=== PATIENT | male | born 1960 | race Caucasian/White ===

== ENCOUNTER 2024-05-04 08:43 | Outpatient (CLI) | payer MEDICARE, MEDICAID, SELFPAY ==
--- NOTE | 2024-05-04 14:11 | P.PCNPFT_ITS ---
PFT Procedure Performed PFT Procedure Performed Spirometry with Pre/Post Bronchodilator Plethysmography (Lung Vol) Diffusing Cap (DLCO) Flow Vol Loop PFT Interpretation This is a pulmonary function test with pre and post-bronchodilator spirometry, plethysmography and diffusing capacity. The test was performed and results interpreted in accordance with the 2019 and 2005 ATS/ERS Task Force guidelines respectively using the Global Lung Function Initiative-2012 reference equations. Patient demonstrated good effort and cooperation. Reproducibility criteria were met. The quality of the pre bronchodilator spirometry maneuver was Grade A and post bronchodilator spirometry maneuver was Grade A. Findings: Spirometry: There is decreased maximal expiratory airflow at all lung volumes with concave expiratory flow tracing. The contour the inspiratory flow tracing is normal. The pre bronchodilator FVC is 4.44 L, 135% predicted. The pre bronchodilator FEV1 is 1.93 L, 75% predicted. The pre bronchodilator FEV1: FVC ratio is 43%. The post bronchodilator FVC is 4.85 L, representing a 9% increase. The post bronchodilator FEV1 is 2.09 L, representing an 8% increase. The post bronchodilator FEV1: FVC ratio is 43%. Plethysmography: The total lung capacity is 7.68 L, 143% predicted. The functi onal residual capacity is 4.89 L, 181% predicted. The residual volume is 3.24 L, 171% predicted. The residual volume: Total lung capacity ratio is 42%. Diffusing capacity: The diffusing capacity unadjusted for hemoglobin and carboxyhemoglobin is 11.3, 47% predicted. The diffusing capacity adjusted for alveolar volume is 1.82, 40% predicted. Impression: There is a mild obstructive abnormality with a normal FEV1. There is no significant improvement after inhaling a single dose of albuterol. The total lung capacity is increased with a normal residual volume to total lung volume ratio is consistent with large lungs.. The diffusing capacity unadjusted for hemoglobin and carboxyhemoglobin is moderately decreased and remains moderately decreased when adjusted for alveolar volume. There are no prior studies for comparison
== END 2024-05-04 08:44 | disposition home or self-care (01) ==
LOC: ANHPFT 08:45
PROVIDERS: PCP Emergency Medicine; Visit Provider Emergency Medicine
DX: R06.00 Dyspnea, unspecified (principal); R94.2 Abnormal results of pulmonary function studies
CPT/HCPCS: 94060; 94726; 94729

== ENCOUNTER 2024-11-13 09:34 | Outpatient (CLI) | payer MEDICARE, MEDICAID, SELFPAY ==
--- NOTE | ~2024-11-13 | MR_ITS ---
MRI of the lumbar spine Clinical History: Radiculopathy Technique: Axial T2-weighted images, and sagittal T1-weighted, T2-weighted, and T2 fat-sat images wer e acquired. Findings: There is no fracture or subluxation of the lumbar spine. Vertebral bodies maintain normal h eight and alignment. No suspicious bone marrow signal abnormality seen. There are reactive marrow sig nal changes about the L4-L5 disc space due to underlying degenerative disc disease. At L1-L2, there is mild degenerative disc narrowing with minimal facet hypertrophy. No spinal canal s tenosis or neural foraminal narrowing. At L2-L3, there is no disc bulge or herniation. There is mild facet hypertrophy. No central canal charito nosis or neural foraminal narrowing. L3-L4, there is mild degenerative disc narrowing. There is mild diffuse disc bulge with mild facet ar thropathy. No jose central canal stenosis. There is moderate to advanced left neural foraminal narro wing, and mild to moderate right neural foraminal narrowing. At L4-L5, there is advanced degenerative disc narrowing. There is diffuse disc bulge with mild facet arthropathy. No jose central canal stenosis. There is severe right neural foraminal narrowing, and m oderate left neural foraminal narrowing. At L5-S1, there is moderate to advanced degenerative disc narrowing. There is diffuse disc bulge with probable superimposed left paracentral protrusion. There is moderate facet arthropathy. There is mil d central canal stenosis. There is severe bilateral neural foraminal compromise. Paravertebral soft tissues are unremarkable. Impression: Severe degenerative spondylosis at L4-L5 and L5-S1, as detailed above. Moderate degenerative spondylosis at L3-L4. Reviewed, dictated and finalized at location M. Impression: Severe degenerative spondylosis at L4-L5 and L5-S1, as detailed above. Moderate degenerative spondylosis at L3-L4.
--- OUTSIDE RECORDS SUMMARY | 2024-11-13 09:38 | XMS_ITS | Data Portability ---
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 I have discussed options with him. He has use Naprosyn in the past and tolerated this back in August. That would be 1 option. Another option would be to try cortisone shot. He would like to try that today. I have discussed risk of side effects including risk of infection with him. He would like to have the 2nd metacarpophalangeal joint injected only as the 3rd has not been bothering him for while. After ChloraPrep prep, 5 mg of Kenalog and 0.5 cc of 0.5% ropivacaine were injected into the right 2nd metacarpophalangeal joint without difficulty he tolerated this well. I discussed with him that he can have a cortisone shot in this joint is office every 3 months if they are necessary and helpful. Another treatment option would be arthroplasty of the 2nd metacarpophalangeal joint and I would refer him to a hand surgeon with special is a shunt in that area if he would like to pursue that option. I have given him Dr. Chi is a name and number he like to that and I advised him that he would need to quit smoking before that would be a consideration. 30 minutes were spent in total care this patient more than half the time spent in [id number] care. 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 We talked about treatment options today in detail he wanted proceed with a cortisone injection. I also recommended oral anti-inflammatory medication he has not currently taking anything he would like to try Celebrex 200 mg daily. We will get him set up with a prescription. I have also recommended referral to a hand surgeon for possible arthroplasty he is going to think about it for now he just wants to try the shot of cortisone in the oral medication. Therefore under sterile conditions I injected the patient's right hand 2nd MCP joint in the office with 2 cc of 0.5% bupivacaine plain and 10 mg of Kenalog. Patient tolerated the procedure well. I will see him back in 6 weeks or so to see what impact treatment has had. He voiced understanding agrees above plan will call for any further problems difficulties or questions. [email or web address] Not available 12/17/2023 16:17:12 03/03/2024 03/03/2024 This note is dic tated and transcribed by [employer]. Programming Manager variances may occur. Despite proofreading, typographical errors may occur. Occasional wrong-word or 'bhsqu-h-wkom' substitutions may have occurred due to the inherent limitations of voice recording. Read the chart carefully and recognize, using context, where substitutions have occurred. Not available 03/10/2024 10:14:09 04/04/2024 04/04/2024 This note is dic tated and transcribed by [employer]. Programming Manager variances may occur. Despite proofreading, typographical errors may occur. Occasional wrong-word or 'bwagg-r-jsnb' substitutions may have occurred due to the inherent limitations of voice recording. Read the chart carefully and recognize, using context, where substitutions have occurred. Not available 04/04/2024 15:25:44 Plan of Treatment Reminders Order Date Submit Date Provider Last Modified By Organization Details Last Modified Time Details Appointments None recorded. Lab None recorded. Referral None recorded. Procedures injection/a spiration joint/bursa (PROC) 2023 024 [email or web address] In-Office Order, Internal Use Only DO Not Attach Compendium DO Not Attach Compendium, Do Not Delete/merge, [id number] 11:04:52 injection/a spiration joint/bursa (PROC) - in office procedure, administere d by provider 2022 023 [email or web address] In-Office Order, Internal Use Only DO Not Attach Compendium DO Not Attach Compendium, Do Not Delete/merge, [id number] 10:12:30 Surgeries None recorded. Imaging XR, hand 2022 023 [email or web address] [facility], [address], [place], [address], 3 15:15:49 Medication Orders bupivacaine HCl 0.5 % (5 mg/mL) injection solution [address] [facility], [address], [place], [id number], 4 15:40:37 Kenalog 10 mg/mL suspension for injection [address] [facility], [address] [place] [address], [id number], 4 15:40:44 celecoxib 200 mg capsule [address] [facility], [address] [facility], [place], [place], [id number], 4 15:40:41 Kenalog 10 mg/mL suspension for injection 2022 023 [email or web address] #67561, [address], [place], [place], [id number], 4 15:40:44 ropivacaine (PF) 5 mg/mL (0.5 %) injection solution 2022 023 [email or web address] [facility] #65595, [address], [place], [place], [id number], 4 15:40:50 Patient TargetsNo targets recorded. Patient InstructionsNo instructions recorded. Reason for Referral None Reported. Results Created Date Observation Date Name Description Value Unit Range Abnormal Flag Note LastModifiedBy Organization Detail LastModifiedTime 07/24/20 23 XR, hand No observ ation record ed. [email or web address] [facility] [address], [place], [address], 08/04/2023 17:24:26 Result Notes None recorded. Problems Name Problem SNOMED Code Status Onset Date Resolution Date Notes Provider Name and Address Organization Details Recorded Time Tobacco user 905675702 Active 2019 Not Available [facility] 3 19:29:37 Alcohol abuse 85326069 Active 2019 Not Available [facility] 3 19:29:37 Insomnia 606487380 Active 2016 Not Available [facility] 3 19:29:38 Chronic bullous emphysema 827623728 Active 2016 Not Available [facility] 3 19:29:38 Neck swelling 471880869 Active 2019 Not Available [facility] 3 19:29:38 Chronic dermatitis 02248139 Active 2016 Not Available [facility] 3 19:29:38 Depressive disorder 03838381 Active 2016 Not Available [facility] 3 19:29:38 Lesion of ulnar nerve 717406016 Active Not Available [facility] 3 19:29:38 Peripheral vascular disease 189131644 Active 2019 Not Available [facility] 3 19:29:38 Anxiety 75237535 Active 2019 Not Available [facility] 3 19:29:38 Alcoholism 4650179 Active 2016 Not Available [facility] 3 19:29:38 Pain in right hand 6171068385643 09 Active 2022 Rae Sudarshan ALFONSO null, [facility] 3 09:24:58 Degenerati ve joint disease of hand 54554597 Active 2023 BRYON España [address], [address], [place], [address] , [facility] 4 16:17:25 Degenerati ve joint disease of hand 98808758 Active 2023 BRYON España [address], [address], [place], [address] , [facility] 4 16:20:19 Asthma 507461053 Active 2023 Yashira Briggs null, [place] [facility] 4 15:41:49 Bronchitis 74772147 Active 2023 Yashira Briggs null, [facility] 4 15:41:57 Skin problem 568711094 Active 2023 Yashira Briggs null, [facility] 4 15:42:15 Sleep disorder 48934805 Active 2023 Yashira Briggs null, [place] [facility] 4 15:42:24 Vascular disorder 18251789 Active 2023 Yashira ortiz, [facility] 4 15:42:35 Cigarette smoker 78232133 Active 2023 Oscar Daniels DPM [address], [address], [place], [address] , [facility] 4 10:17:17 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 Procedures Surgical History Date Name Laterality Status Provider Name and Address Organization Details Recorded Time Nail Debridement completed Oscar Daniels DPM [address], [place], [address], [email or web address] [facility] 04/04/2024 15:28:29 Imaging Results Imaging Date Name Status LastModified by Organiz ation Details LastModified Time 07/24/2023 XR, hand completed [email or web address] [facility] [address], [place], [address], 08/04/2023 17:24:26 Procedure Notes None recorded. Medical Equipment None Reported. Allergies No known drug allergies Medications Name Sig Start Date Stop Date Status Note LastModified by Organization Details LastModified Time losartan 50 mg tablet TAKE 1 TABLET BY MOUTH EVERY DAY active Not Available Not Available No t Available celecoxib 200 mg capsule TAKE 1 CAPSULE BY MOUTH EVERY DAY active Not Available Not Available No t Available cilostazol 100 mg tablet TK 1 T PO BID 11/25 completed Not Available Not Available Not Available bupropion HCl SR 150 mg tablet,12 hr sustained-r elease 11/25 completed Not Available Not Available Not Available nystatin 100,000 unit/mL oral suspension SWISH AND SPIT 6 ML BY MOUTH FOUR TIMES DAILY 03/03 completed Not Available Not Available Not Available prednisone 10 mg tablet 07/24 completed Not Available Not Available Not Available nicotine 14 mg/24 hr daily transdermal patch APPLY 1 PATCH TOPICALLY TO THE SKIN EVERY DAY 07/24 completed Not Available Not Available Not Available triamcinolo ne acetonide 0.5 % topical cream LUCY THIN LAYER EXT AA BID FOR 7 DAYS 11/25 completed Not Available Not Available Not Available cetirizine 10 mg tablet TAKE 1 TABLET BY MOUTH EVERY DAY 07/24 completed Not Available Not Available Not Available azithromyci n 250 mg tablet TK 2 TS PO ON DAY 1, THEN TK 1 T PO D FOR 4 DAYS 11/25 completed Not Available Not Available Not Available naltrexone 50 mg tablet 11/25 completed Not Available Not Available Not Available bupivacaine HCl 0.5 % (5 mg/mL) injection solution in office 03/03 completed Not Available Not Available Not Available prednisone 20 mg tablet TK 3 TS PO ONCE DAILY. 11/25 completed Not Available Not Available Not Available acetaminoph en 300 mg-codeine 30 mg tablet TAKE 1 TABLET BY MOUTH FOUR TIMES DAILY NEEDED 04/04 completed Not Available Not Available Not Available clopidogrel 75 mg tablet TK 1 T PO QD 11/25 completed Not Available Not Available Not Available omeprazole 40 mg capsule,del ayed release TAKE 1 CAPSULE BY MOUTH EVERY DAY active Not Available Not Available No t Available triamcinolo ne acetonide 0.025 % topical cream 11/25 completed Not Available Not Available Not Available Kenalog 10 mg/mL suspension for injection in office 03/03 completed [facility]: 0003- [phone]- 20 Not Available Not Available Not Available benzonatate 100 mg capsule 11/25 completed Not Available Not Available Not Available simvastatin 20 mg tablet TK 1 T PO QD 11/25 completed Not Available Not Available Not Available buspirone 10 mg tablet TK 1 T PO BID 11/25 completed Not Available Not Available Not Available nicotine 21 mg/24 hr daily transdermal patch APPLY 1 PATCH TOPICALLY TO THE SKIN EVERY DAY active Not Available Not Available No t Available albuterol sulfate HFA 90 mcg/actuati on aerosol inhaler INHALE 2 PUFFS BY MOUTH EVERY 4 TO 6 HOURS NEEDED 07/24 completed Not Available Not Available Not Available doxycycline hyclate 100 mg tablet TK 1 T PO D 11/25 completed Not Available Not Available Not Available naproxen 500 mg tablet TAKE 1 TABLET BY MOUTH TWICE DAILY WITH FOOD 07/24 completed Not Available Not Available Not Available amoxicillin 875 mg-potassiu m clavulanate 125 mg tablet TAKE 1 TABLET BY MOUTH TWICE DAILY 03/03 completed Not Available Not Available Not Available nicotine 7 mg/24 hr daily transdermal patch APPLY 1 PATCH TOPICALLY TO THE SKIN EVERY DAY DIRECTED 07/24 completed Not Available Not Available Not Available oxycodone 5 mg tablet TAKE 1 TABLET BY MOUTH EVERY 6 HOURS NEEDED FOR PAIN 07/24 completed Not Available Not Available Not Available Asprin Ec Low Dose 81 mg tablet,phill yed release Take 1 tablet every day by oral route. active Not Available Not Available No t Available Suprep Bowel Prep Kit 17.5 gram-3.13 gram-1.6 gram oral solution DIRECTED 11/25 completed Not Available Not Available Not Available ropivacaine (PF) 5 mg/mL (0.5 %) injection solution IN OFFICE 03/03 completed Not Available Not Available Not Available Stiolto Respimat 2.5 mcg-2.5 mcg/actuati on solution for inhalation INHALE 2 PUFFS BY MOUTH EVERY DAY active Not Available Not Available No t Available bupropion HCl 150 mg tablet,12 hr sustained-r elease(smok ing deterrent) TK 1 T PO BID 11/25 completed Not Available Not Available Not Available Afluria Qd 2019- (36 mos up)(PF)60 mcg (15 mcg x4)/0.5 mL IM syringe ADM 0.5ML IM UTD 11/25 completed Not Available Not Available Not Available Vitals Date Recorded Body height Body mass index (BMI) Body weight Provider Name and Address Organization Details Last Updated DateTime 07/24/2023 162.56 cm 18.9 kg/m2 69548.16 g ALFONSO Marin [employer] 07/24/2023 09:27:33 Date Recorded Body height Body mass index (BMI) Body weight Provider Name and Address Organization Details Last Updated DateTime 12/17/2023 162.56 cm 23.2 kg/m2 14037.97 g Melinda Chatman [employer] 12/17/2023 15:28:14 Date Recorded Body height Body mass index (BMI) Body weight Provider Name and Address Organization Details Last Updated DateTime 03/03/2024 157.48 cm 20.5 kg/m2 61283.35 g Yashira Briggs [employer] [facility] 03/03/2024 15:41:25 Date Recorded Body height Body mass index (BMI) Body weight Respiratory rate Heart rate Body temperature Oxygen saturation Oxygen saturation in Arterial blood by Pulse oximetry Systolic blood pressure Diastolic blood pressure Provider Name and Address Organization Details Last Updated DateTime 4 157.48 cm 20.5 kg/m2 22895.3 5 g 16 /min 66 /min 97.6 [degF] 96 % 96 % 130 mm[Hg] 90 mm[Hg] Yasmeen Lambert [place] [facility] [facility] 4 14:49:50 Social History Question Answer Notes LastModified by Organizat ion Details LastModified Time Tobacco Smoking Status Current Every Day Smoker ALFONSO [place], [place] [facility] 07/24/2023 09:23:59 What Is Your Level Of Alcohol Consumption? Moderate Information not available 03/03/2024 How Much Tobacco Do You Smoke? 1 PPD [email or web address] Information not available 07/24/2023 Do You Or Have You Ever Used Any Other Forms Of Tobacco Or Nicotine? Yes Information not available 07/24/2023 Sex: Unknown Functional Status None recorded. Mental Status None recorded. Family History Relationship Description Onset Age of this Age Resolved Age Notes LastModified by Organization Details LastModified Time Mother Arthritis Not available 03/03/2024 15:42:58 Mother Hypertensive disorder [email or web address] Not available 2023 15:43:11 Mother Heart disease [email or web address] Not available 2023 15:43:26 Father Hypertensive disorder [email or web address] Not available 2023 15:43:11 Father Heart disease [email or web address] Not available 2023 15:43:25 Medical History Condition Response ARTHRITIS Y PVD Y CAROTID BLOCKAGE Y USE OF BLOOD THINNERS Y VASCULAR DISEASE Y COPD Y Past Encounters Encounter ID Performer Location Encounter Start Date Encounter Closed Date Diagnosis/Indication Diagnosis SNOMED-CT Code Diagnosis ICD10 Code Diagnosis Note [id number] Carlos Kiran MD [facility] [place] [address] [place] [address] 07/24/2023 09:09:06 08/05/2023 15:15:49 Pain in right hand 6558812650 91043 M79.022 [id number] BRYON España [facility] [address] [place] [address] 12/17/2023 15:21:23 12/17/2023 15:59:23 Pain in right hand 3782067656 89299 M79.641 Degenerati ve joint disease of hand 64439177 M19.207 [id number] Oscar Daniels DPM [facility] [address] [place] [address] 03/03/2024 15:30:46 03/10/2024 10:20:06 Cigarette smoker 70459922 F17.210 recommend discontinu e smokingedu cated on signs symptoms of smoking Alcoholic polyneuropathy 1764501 G62.1 secondary to abovecheck feet dailyconti nue supportive shoe gearfollow -up 1 month Alcohol abuse 82655972 F 10.10 recommend no drinkinged ucated on signs and symptoms of alcohol abuse [id number] Oscar Daniels DPM [facility] [address] [place] [address] 04/04/2024 14:42:37 04/04/2024 16:41:35 Cigarette smoker 23327508 F17.210 recommend discontinu e smokingedu cated on signs symptoms of smoking Peripheral vascular disease 583249450 I73.9 Follow-up with vascular next week Dystrophia unguium 61346 009 L60.3 nails debrided without incident Pain in toe 720249821 M7 9.676 secondary to above Health Concerns Section Related Observation LastModified by Organization Detai ls LastModified Time None Recorded Concern Status LastModified by Organization Details LastModified Time None Recorded Advance Directives Directive None Recorded Payers Encounter Date Sequence Insurance Name Policy Number Policy Young Covered Member ID Young Member ID Guarantor Name 07/24/2023 1 [facility] (MEDICARE REPLACEMENT/A DVANTAGE - PPO) [id number] Robin Self [id number] Robin Self 12/17/2023 1 [facility] (MEDICARE REPLACEMENT/A DVANTAGE - PPO) [id number] Robin Self [id number] Robin Self 03/03/2024 1 [facility] (MEDICARE REPLACEMENT/A DVANTAGE - PPO) [id number] Robin Self [id number] Robin Self 04/04/2024 1 [facility] (MEDICARE REPLACEMENT/A DVANTAGE - PPO) [id number] Robin Self [id number] Robin Self Notes Date Note Type Note Provider Name and Address Organization Details Recorded Time 3 text/html Patient is a 63-year-old gentleman referred by Dr. Boland for evaluation of his right hand pain. He complains of intermittent severe pain and swelling and burning pain in the right 2nd metacarpophalangeal joint. Occasionally the 3rd metacarpophalangeal joint becomes painful that quite as severe and much less frequent. At times this will awaken him at night and it is hard to use his right hand. His past history is significant for a recent left sided carotid endarterectomy knee scheduled for the right side soon. He has a history of poor circulation in his legs also. He is currently using the nicotine patch to help him quit smoking. He has cut back to 5 cigarettes per day as of yesterday. Carlos Kiran MD [address] [place] [address], [place], [address], [place] [facility] 08/04/2023 17:27:58 4 text/html Patient returns complaining of right hand pain at the 2nd MCP joint. Previous x-rays show fairly advanced osteoarthritis of the 2nd MCP joint with essentially [id number] changes. He has enlargement of the joint crepitation through the arc of motion and pain that persists. He states if he overdoes it is joint will get enlarge it is quite tender and stiff. Today states the pain is about an 8 on a scale 1-10 it has been bothering him a lot lately. He last had a shot of cortisone here 5 and half months ago. He states this helped tremendously but the past few weeks it has been bothering him more and more. Despite conservative measures on his own at home his symptoms continue. He comes in today requesting a cortisone injection into the right hand 2nd MCP joint. He has not currently taking any anti-inflammatory medication we talked about this in detail today I have recommended that maybe he try something for a short course to see if this helps. We could refer him to Dr. Chi talk about possible surgical options for this as well. BRYON España [address], [address], [place], [address], [email or web address] [facility] 12/17/2023 16:20:37 4 text/html . Patient is a 63-year-old male who presents for foot care checkup. Patient denies any open wounds or infection. Patient denies any other complaints. Oscar Daniels DPM [address], [place], [address], [employer] 03/10/2024 10:20:05 4 text/html . Patient is a 63-year-old male who returns for routine foot care. Patient has a history of toe pain due to thickened elongated toenails which he states he is unable to cut. Patient has a history of peripheral vascular disease he has an upcoming appointment on next week with vascular. Patient states that he has had stenting but was unsuccessful of the lower legs he states that he can only walk short distances and develops pain he states he smokes approximately 8 cigarettes a day. Patient states he is trying to quit. Patient denies any other complaints. Oscar Daniels DPM [address], [place], [address], [email or web address] [facility] 04/04/2024 15:28:48
--- OUTSIDE RECORDS SUMMARY | 2024-11-13 09:39 | XMS_ITS | Referral Summary ---
Author Organization [facility] Physician Office Building [address] [place] [phone] Care Team Providers Care Primer Expeditor And Drier Name Role Phone Nara Craig MD Primary Care Provider [phone] Encounters Date Type Department Care Team Description 10/24/2024 Telephone [facility] Gastroenterology at [address] [place] [address] Thania Hagen MA from Last 3 Months Allergies Active Allergy Reactions Criticality Noted Date Comments Venom-Honey Bee Swelling High 05/06/2023 Medications aspirin 81 mg enteric coated tablet Take 1 tablet (81 mg total) by mouth daily Active albuterol HFA (PROVENTIL HFA,VENTOLIN HFA,PROAIR HFA) 90 mcg/actuation inhaler Take 2 puffs by mouth every 4 (four) hours as needed 2 Active nicotine (NICODERM CQ) 14 mg APPLY 1 PATCH EXTERNALLY TO THE SKIN DAILY. DO NOT SMOKE WITH PATCHES ON 3 Active celecoxib (CeleBREX) 200 mg capsule Take by mouth daily 4 Active tiotropium-olod ateroL (STIOLTO) 2.5-2.5 mcg/actuation inhaler 4 Active triamcinolone (KENALOG) 0.5 % cream LUCY THIN LAYER EXT AA BID FOR 7 DAYS 8 Active losartan (COZAAR) 50 mg tablet Take 1 tablet (50 mg total) by mouth daily 4 Active Active Problems Problem Noted Date Diagnosed Date Lesion of ulnar nerve 07/19/2024 Neck pain 07/19/2024 Shoulder pain 07/19/2024 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 Pain in toe 04/04/2024 Personal history of colonic polyps 04/01/2024 Encounter for screening colonoscopy 04/01/2024 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 Cigarette smoker 03/10/2024 Asthma 03/03/2024 Bronchitis 03/03/2024 Vascular disorder 03/03/2024 Skin problem 03/03/2024 Sleep disorder 03/03/2024 Degenerative joint disease of hand 12/17/2023 Pain in right hand 07/23/2023 Left-sided extracranial carotid artery stenosis 09/26/2022 Neck swelling 06/24/2020 Multiple nodules of lung 09/06/2017 Anxiety 07/27/2017 Numbness of finger 07/27/2017 Alcoholism 06/24/2017 Chronic dermatitis 06/24/2017 High prostate specific antigen (PSA) 06/15/2017 Nicotine dependence 06/14/2017 Claudication 01/07/2017 Peripheral vascular disease 01/07/2017 Tobacco abuse 01/07/2017 Alcohol abuse 10/22/2016 Insomnia 10/22/2016 Leg pain 09/10/2016 Dyslipidemia 09/10/2016 Shortness of breath 09/10/2016 Ventricular premature depolarization 09/10/2016 Chronic bullous emphysema 07/06/2016 Pain in lower limb 06/15/2016 Depressive disorder 06/15/2016 Dyspnea on exertion 06/15/2016 Social History Tobacco Use Types Packs/Day Years Used Date Smoking Tobacco: Every Day Cigarettes Tobacco Cessation:Ready to Q uit: Not Asked; Counseling Given: Not Answered Sex and Gender Information Value Date Recorded Sex Assigned at Not on file Legal Sex 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 Gender Identity Not on file Sexual Orientation Not on file Last Filed Vital Signs Vital Sign Reading Time Taken Comments Blood Pressure - - Pulse - - Temperature - - Respiratory Rate - - Oxygen Saturation - - Inhaled Oxygen Concentration - - Weight 52.2 kg (115 lb) 07/19/2024 7:50 AM FISHING ACCESSORIES MAKER Height 157.5 cm (5' 2 ) 07/19/2024 7:50 AM FISHING ACCESSORIES MAKER Body Mass Index 21.03 07/19/2024 7:50 AM FISHING ACCESSORIES MAKER Plan of Treatment Upcoming Encounters Date Type Department Care Team (Late st Contact Info) Description 02/21/2025 9:00 AM CDT Hospital Encounter [address] [place] [address] Marcella Calabrese MD [address] [facility] [address] [place] [address] 02/21/2025 9:00 AM CDT - 02/21/2025 9:30 AM CDT Surgery [facility] [address] [place] [address] Marcella Calabrese MD [address] [facility] [address] [place] [address] COLONOSCOPY Scheduled Procedures Name Priority Associated Diagnoses Date/Ti me COLONOSCOPY Personal history of colonic polyps Encounter for screening colonoscopy 02/21/2025 9:00 AM CDT Procedures Procedure Name Priority Date/Time Associated Diagnosis Comments COLONOSCOPY IMAGES 04/23/2016 from Last 3 Months or Most Recently Relevant to Health Maintenance Results * COLONOSCOPY IMAGES (04/23/2016) Anatomical Region Laterality Modality Other Narrative 04/23/2016 Ordered by an unspecified provider. us Historical Provider GI PROCEDURE ORDERABLES F inal Result from Last 3 Months or Most Recently Relevant to Health Maintenance Insurance [place] [employer] [facility] MEDICARE [facility] Address: [address] [address] [place] [address] [employer] [facility] MEDICARE [facility] Address: [address] [address] [place] [address] Care Teams Primer Expeditor And Drier Relationship Specialty Start Date End Date Nara Craig MD [address] [place] [id number] PCP - General Emergency Medicine 03/31/24
--- OUTSIDE RECORDS SUMMARY | 2024-11-13 09:39 | XMS_ITS | CONTINUITY OF CARE DOCUMENT ---
Author Name reddnubia onicourt Address Unknown Organization [facility] Address [address] [place] [address] Phone [phone] Care Team Providers Care Electrician Substation Name Role Phone Christiano Patton MD Unavailable [phone] SYLVIA ALVAREZ, NATALIE Unavailable [phone] NATALIE WARD MD Unavailable [phone] PROBLEMS Condition Status Date Provider Notes Leg pain active Christiano Patton MD Family History of Sudden Car diac /CAD/CHF/CVA active ? Praful Degroot MD PVC's active Christiano Patton MD Dyslipidemia active Christiano Patton MD Shortness of breath active Christiano Patton MD Tobacco abuse active Christiano Patton MD PVD - 11/24 AIF - SEVERE active Christiano Patton MD ENCOUNTERS Date Type Provider Location Encounter Diag nosis - In-person encounter Office Visit Praful Degroot MD [place] [facility] - In-person encounter Office Visit Christiano Patton MD [place] [facility] PVD - 11/24 AIF - [place] - In-person encounter Office Visit Praful Degroot MD [place] [facility] Family History of Sudden Cardiac /CAD/CHF/CVAPVD - 11/24 AIF - [place] - In-person encounter Office Visit Christiano Patton MD [place] [facility] Leg painFamily History of Sudden Cardiac /CAD/CHF/CVAPVC' sDyslipidemiaShortnes s of breathTobacco abuse VITAL SIGNS Date Observation Value Provider Body Mass Index (Ratio) 20.72 kg/m2 Shalom Degroot MD blood pressure, cuff size regular Ke rri Maulik blood pressure, diastolic 86 mm[Hg] Ke rri Maulik blood pressure, systolic 124 mm[Hg] Tanna vallejo Maulik oxygen saturation, oximetry 98 % Penny Maulik respiratory rate E&M 18 /min Penny Cano kendal pulse rate 84 /min Penny Melvin [facility] weight E&M 117 [lb_av] Penny Benedictolindseyalmatanmay [facility] height E&M 63 [in_i] Penny Melvin [facility] Body Mass Index (Ratio) 21.72 kg/m2 Yobany Saldaña blood pressure, resting No Yany Whittaker Montesinos blood pressure, diastolic 82 mm[Hg] Tyshawn Jungenson blood pressure, systolic 118 mm[Hg] Marleny Montesinos oxygen saturation, oximetry 96 % Reba Jungenson respiratory rate E&M 20 /min Renzo Montesinos pulse rate 84 /min Reba Dimitris lesa weight E&M 122.6 [lb_av] Reba Erich rosa isela height E&M 63 [in_i] Reba Shanks lesa Body Mass Index (Ratio) 21.79 kg/m2 Yobany Saldaña blood pressure, cuff size regular Melia Bean blood pressure, diastolic 70 mm[Hg] Melia Bean blood pressure, systolic 110 mm[Hg] Emery Bean oxygen saturation, oximetry 98 % Belen Bean pulse rate 78 /min Belen Bean weight E&M 123 [lb_av] Belen Bean height E&M 63 [in_i] Belen Bean Body Mass Index (Ratio) 21.61 kg/m2 Yobany Saldaña blood pressure, cuff size regular Luico Quirogamontana blood pressure, diastolic 92 mm[Hg] Lucio myers Maulik blood pressure, systolic 146 mm[Hg] Tanna vallejo Maulik oxygen saturation, oximetry 98 % Penny Maulik respiratory rate E&M 16 /min Penny Jerome edmonds pulse rate 82 /min Penny Feltonskip austin weight E&M 122 [lb_av] Penny Melvin [place] height E&M 63 [in_i] Penny Smithbibiana olmstead ALLERGIES No Known Drug Allergies RESULTS Date Observation Value Provider Reference Range Interpretation Location 8 LDL cholesterol, serum 73 mg/dL Christiano Patton MD 5 hemoglobin A1C, blood, as % of total hemoglobin 5.7 % [facility] 4.0 - 5.6 High 8 very low density lipoproteins 35.8 mg/dL [facility] 5.0 - 40.0 8 LDL/HDL (low-density lipoprotein/high- density lipoprotein) ratio 1.2 RATIO [facility] - 8 lipoprotein, beta, serum, point, quantitative, calculated 73.2 (?) [facility] 0.0 - 100.0 8 HDL cholesterol, serum 60.0 mg/dL [facility] 35.0 - 55.0 High 8 cholesterol, serum 169.0 mg/dL [facility] 0.0 - 200.0 8 triglyceride, serum, fasting 179.0 mg/dL [facility] 0.0 - 150.0 High 8 urea nitrogen/creatini ne ratio, serum 14.0 [facility] - 8 Estimated Glomerular Filtration Rate (calc) 81.6 (?) [facility] 59.0 - 8 chloride, serum 99.9 mmol/L [facility] 98.0 - 107.0 8 potassium, serum 4.0 mmol/L [facility] 5[facility]1 8 sodium, serum 139.0 mmol/L [facility] 136.0 - 145.0 8 creatinine, serum 1.0 mg/dL [facility] 0.7 - 1.2 8 carbon dioxide, venous blood 23.0 mmol/L [facility] 22.0 - 29.0 8 calcium, serum 9.1 mg/dL [facility] 8.6 - 10.2 8 urea nitrogen, blood 14.0 mg/dL [facility] 6.0 - 20.0 8 blood glucose, random 85.0 mg/dL [facility] 74.0 - 99.0 8 red blood cell distribution width, size density 45.9 fL [facility] - 8 immature granulocytes, percentage of total cells, blood 0.2 % [facility] - 8 nucleated red blood cells as percent of blood leukocytes 0.0 % [facility] - 8 red blood cell (erythrocyte) count, per high power field 0.0 10*3/UL [facility] - 8 eosinophils as percent of blood leukocytes 4.0 % [facility] - 8 neutrophils as percent of blood leukocytes 49.4 % [facility] - 8 Absolute Neutrophils 3.1 CELLS/UL [facility] 1.5 - 7.8 8 basophils as percent of blood leukocytes 0.6 % [facility] Absolute Basophils 0.0 CELLS/UL [facility] 0.0 - 0.2 8 monocytes as percent of blood leukocytes 10.5 % [facility] - 8 Absolute Monocytes 0.7 CELLS/UL [facility] 0.2 - 1.0 8 lymphocytes as percent of blood leukocytes 35.3 % [facility] - 8 Absolute Lymphocytes 2.2 CELLS/UL [facility] 0.9 - 3.9 8 mean platelet volume 10.6 (?) [facility] - 8 platelet count 161.0 THOUSAND/ UL [facility] 100.0 - 400.0 8 mean corpuscular hemoglobin concentration, RBC 33.4 G/DL [facility] 31.0 - 38.0 8 mean corpuscular hemoglobin, RBC 32.2 pg [facility] 25.0 - 35.0 8 mean corpuscular volume, RBC 96.3 fL [facility] 75.0 - 100.0 8 hematocrit, blood 39.2 % [facility] 35.0 - 55.0 8 hemoglobin, blood 13.1 g/dL [facility] 11.5 - 16.5 8 erythrocyte count, whole blood 4.1 MILLION/U L [facility] 3.5 - 5.5 8 prothrombin time (patient) 10.2 s [facility] 9.0 - 11.5 8 international normalized ratio (INR) 0.9 [facility] 0.9 - 1.1 HISTORY OF MEDICATION USE Medication Status Instructions Dates Provider Indications Com ments CV[facility] NTS STEP 1 21 MG/24HR TRANSDERMAL PATCH 24 HOUR active One patch applied once daily Praful Degroot MD PLAVIX 75 MG ORAL TABLET active ONE TAB. DAILY Praful Degroot MD CILOSTAZOL 100 MG ORAL TABLET active take one pill twice a day Penny Willingham ASPIRIN ADULT LOW DOSE 81 MG ORAL TABLET DELAYED RELEASE completed One Tab By Mouth Daily - Christiano Patton MD NICOTINE 7 MG/24HR TRANSDERMAL PATCH 24 HOUR completed Apply one patch daily - Penny Willnigham SIMVASTATIN 20 MG ORAL TABLET active take one pill a day Penny Willingham BUPROPION HCL ER (SMOKING DET) 150 MG ORAL TABLET EXTENDED RELEASE 12 HOUR active take one pill twice a day Penny Willingham SOCIAL HISTORY Date Observation Value Provider number of grandchildren Praful Degroot MD T staci Degroot MD social history reviewed E&M revi ewed - no changes required Praful Degroot MD alcohol use, average drinks per day social Penny Maulik smoking/tobacco cess ation, patient education and counseling yes Penny Maulik alcohol use yes Penny Feltonradhalindseybibiana olmsteader number of years as a smoker 42 a Penny Maulik smoking history, tot al pack/day 1/2 Penny Maulik cigarette use yes Penny Junaid boyle smoking status Current every day smoker William hunter Maulik social history reviewed E&M revi ewed - no changes required Christiano Patton MD alcohol use, average drinks per day social Reba Montesinos smoking/tobacco cess ation, patient education and counseling yes Reba Montesinos alcohol use yes Reba Shanks iraison number of years as a smoker 42 a Reba Montesinos smoking history, tot al pack/day 1/2 Christiano Patton MD cigarette use yes RebaRemedios natarajan smoking status Current every day smoker Will Elda Montesinos social history reviewed E&M revi ewed - no changes required Praful Degroot MD alcohol use, average drinks per day social Belen Bean smoking/tobacco cess ation, patient education and counseling yes Belen Bean alcohol use yes Belen Bean number of years as a smoker 42 a Belen Bean smoking history, tot al pack/day 1/2 pack Belen Bean cigarette use yes Belen Bean smoking status Current every day smoker L shade Bean social history reviewed E&M revi ewed - no changes required Christiano Patton MD social history E&M Smoking Histo ry: P pedro currently smokes every day. P pedro has been counseled to quit. Christiano Patton MD smoking/tobacco cess ation, patient education and counseling yes Christiano Patton MD alcohol use, average drinks per day social Penny Willingham alcohol use yes Penny olmsteader number of years as a smoker 42 a Penny Willingham smoking history, tot al pack/day 1 Christiano Patton MD cigarette use yes Penny boyle smoking status Current every day smoker K dale Maulik FAMILY HISTORY Family Member Condition Father Family History of [place] dden Cardiac : Father Family History of Co ngestive Heart Failure: Father Family History of Co ronary Artery Disease: Father Family History of CV A or Stroke: Mother Family History of [place] dden Cardiac : Mother Family History of Co ngestive Heart Failure: Mother Family History of Co ronary Artery Disease: Mother Family History of CV A or Stroke: INSURANCE PROVIDERS Payer name Policy type / Coverage type [facility] [place] MED[place] (2) Medicaid [id number] ADVANCE DIRECTIVES Name Date DISCUSSED - NO DECISION MADE TREATMENT PLAN Date Name Performer Cardiology Follow up Praful dodson MD Cardiology Follow up :Rx sent fo r nicotine patches. Praful Degroot MD Cardiology Follow up :Symptomatic with further claudication. May benefit from revascularization. Rx sent for Plavix 75mg daily. Praful Degroot MD Cardiology:CHOL: 169 .0 (11/04/2016) HDL: 60.0 (11/04/2016) T.0 (11/04/2016) LDL: 73.2 (11/04/2016) His updated medication list for this problem includes: Simvastatin 20 Mg Oral Tabs (Simvastatin) ..... Take one pill a day Orders: H EMOGLOBIN A1c (496) Christiano Patton MD Cardiology:The pt is trying to q uit smoking. Christiano Patton MD Cardiology:AIF showe d severe bilateral complex PAD which gwendolyn be difficult to revascularize. He reports his symptoms have improved. If he becomes more symptomatic, will evaluate for revascularization. Christiano Patton MD Cardiology:AIF showe d severe bilateral complex PAD which gwendolyn be difficult to revascularize. We will switch from ASA to Plavix 75mg daily. LDL is well controlled. He reports his symptoms have improved. If he becomes more symptomatic, will evaluate for revascularization. Christiano Patton MD Cardiology Follow up:Normal stre ss test and echo. Praful Degroot MD Cardiology Follow up Praful dodson MD Cardiology Follow up:Plan AIF. T staci Degroot MD Cardiology New Patie nt:His updated medication list for this problem includes: Simvastatin 20 Mg Oral Tabs (Simvastatin) ..... Take one pill a day Christiano Patton MD Cardiology New Patie nt:He has family hx of heart disease including CVA, CHF, CAD and sudden cardiac . Orders: S NOMED-CT: [id number] Current Medications Documented (SCT-[id number]) C omplete Echo (CPT-07945) S TR - Nuclear (CPT-17529) C arotid Duplex Bilateral (CPT-60309) Christiano Patton MD Cardiology New Patie nt:STRONGLY ENCOURAGED TO STOP SMOKING; SMOKING CESSATION TECHNIQUES DISCUSSED. Christiano Patton MD Cardiology New Patie nt:He has SOB with mild exertion. He has hx of smoking, hypercholesterolemia and family hx of heart disease. Will obtain PFT's, echo, stress myoview. Christiano Patton MD Cardiology New Patie nt:The pt complains of severe claudication and rest pain in both calves. He has hx of smoking, hypercholesterolemia and family hx of heart disease. Will obtain arterial duplex of the lower extremities. Christiano Patton MD Date Name HEMOGLOBIN A1c LIPID PANEL BASIC METABOLIC PANE L W/EGFR CBC (INCLUDES DIFF/P LT) PROTHROMBIN TIME WIT H INR AIF - GC Arterial Duplex Bi-L ower EX Carotid Duplex Bilat eral STR - Nuclear Complete Echo DLCO - 42942 FRC - 12034 FVC - 27966 HISTORY OF PROCEDURES Procedure Date Procedure Name Provider Procedure Notes S sage SNOMED-CT: 716956636 846151 Current Medications Documented Christiano Patton MD completed SNOMED-CT: 538672981 Smoking Cessation Counseling Christiano Patton MD completed SNOMED-CT: 777071064 629859 Current Medications Documented Christiano Patton MD completed SNOMED-CT: 546662249 Smoking Cessation Counseling Christiano Patton MD completed SNOMED-CT: 322274470 046002 Current Medications Documented Christiano Patton MD completed Stress EKG Jean Young MD complet ed Regadenoson, 4 units Christiano Patton MD completed Cardiolite, 2 units Christiano Patton MD c ompleted SPECT Images Jean Young MD compl eted BLOOD COUNT HEMOGLOBIN Christiano Patton MD completed FVC - 34752 Christiano Patton MD completed FRC - 27281 Christiano Patton MD completed DLCO - 47265 Christiano Patton MD complete d SNOMED-CT: 305930817 686148 Current Medications Documented Christiano Patton MD completed SNOMED-CT: 409657517 Smoking Cessation Counseling Christiano Patton MD completed EKG Christiano Patton MD completed
--- OUTSIDE RECORDS SUMMARY | 2024-11-13 09:39 | XMS_ITS | Clinical Summary ---
Author Organization [facility] Physician Office Building [address] [place] [phone] Care Team Providers Care Front Desk Clerk Name Role Phone Nara Craig MD Primary Care Provider [phone] Allergies Active Allergy Reactions Criticality Noted Date [...] Depressive disorder 06/15/2016 Dyspnea on exertion 06/15/2016 Encounters Date Type Department Care Team Description 10/24/2024 Telephone [facility] Gastroenterology at [address] [place] [address] Thania Hagen MA from Last 3 Months Medical History Medical History Date Comments COPD (chronic obstructive pulmonary disease) (HC C) Hypertension Family History Medical History Relation Name Comments Heart disease Father Heart disease Mother Relation Name Status Comments Father Mother Social History Tobacco Use Types Packs/Day Years Used Date Smoking Tobacco: Every Day Cigarettes Tobacco Cessation:Ready to Q uit: Not Asked; Counseling Given: Not Answered Sex and Gender Information Value Date Recorded Sex Assigned at Not on file 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 Gender Identity Not on file Sexual Orientation Not on file Obstetrics History Last Filed Vital Signs Vital Sign Reading Time Taken Comments Blood Pressure - - Pulse - - Temperature - - Respiratory Rate - - Oxygen Saturation - - Inhaled Oxygen Concentration - - Weight 52.2 kg (115 lb) 07/19/2024 7:50 AM SERVICE LINE LAYER Height 157.5 cm (5' 2 ) 07/19/2024 7:50 AM SERVICE LINE LAYER Body Mass Index 21.03 07/19/2024 7:50 AM SERVICE LINE LAYER Plan of Treatment Upcoming Encounters Date Type Department Care Team (Late st Contact Info) Description 02/21/2025 9:00 AM CDT Hospital Encounter [facility] 1 [place] [address] Marcella Calabrese MD [address] [facility] [address] [address] [place] [address] 02/21/2025 9:00 AM CDT - 02/21/2025 9:30 AM CDT Surgery [address] [address] Marcella Calabrese MD [address] [facility] [address] [address] [place] [address] COLONOSCOPY Scheduled Procedures Name Priority Associated Diagnoses Date/Ti me COLONOSCOPY Personal history of colonic polyps Encounter for screening colonoscopy 02/21/2025 9:00 AM CDT Health Maintenance Due Date Last Done Comments Depression Screening 1958 Fall Risk Assessment 1960 Hepatitis C Screening 1960 Prostate Cancer Screening-PSA 1958 Hepatitis B Screening 1976 Pneumococcal vaccine 65+ (1 of 2 - PCV) 1977 Zoster Vaccine (1 of 2) 2008 Abdominal Aortic Aneurysm (A AA) Screen 2023 Well Visit 65+ 2023 Covid-19 Vaccine (4 - 2023-2 5 season) 2024 06/27/2021, 11/19/2020, 10/22/2020 Influenza Vaccine (#1) 2024 2, 07/22/2022, 07/07/2022, Additional history exists Colon Cancer Screening-Colonoscopy 04/23/2026 04/23/2016, 04/23/2016 DTaP/Tdap/Td Vaccine (2 - Td or Tdap) 10/22/2026 10/22/2016 Colon Cancer Screening-CT Colonography Discontinued 04/23/2016, 04/23/2016 Colon Cancer Screening-DNA Stool Discontinued 04/23/20 16, 04/23/2016 Colon Cancer Screening-FIT Discontinued 04/23/2016, Colon Cancer Screening-Sigmoidoscopy Discontinued 04/23/2016, 04/23/2016 Procedures Procedure Name Priority Date/Time Associated Diagnosis Comments COLONOSCOPY IMAGES 04/23/2016 from Last 3 Months or Most Recently Relevant to Health Maintenance Results * COLONOSCOPY IMAGES (04/23/2016) Anatomical Region Laterality Modality Other Narrative 04/23/2016 Ordered by an unspecified provider. us Historical Provider GI PROCEDURE ORDERABLES F inal Result from Last 3 Months or Most Recently Relevant to Health Maintenance Insurance [place] [employer] [facility] MEDICARE [facility] MEDICARE Address: [address] [address] [place] [address] [employer] [facility] MEDICARE [facility] MEDICARE Address: [address] [address] [place] [address] Care Teams Front Desk Clerk Relationship Specialty Start Date End Date Nara Craig MD [address] [place] [id number] PCP - General Emergency Medicine 03/31/24
--- OUTSIDE RECORDS SUMMARY | 2024-11-13 09:39 | XMS_ITS | Clinical Summary ---
Author Organization [facility] Address [address] [place] [address] Care Team Providers Care Ticket Agent Name Role Phone Nara Craig MD Primary Care Provider [phone] Source Comments [facility],non-owned Affiliates and Associated Physician Practices is amultiple site organization consisting of ambulatory clinics and hospital sitesin [place] and [place]. This disclosure is being madepursuant to the Care Everywhere program and may not contain all information available regarding this patient. Last updated 18.[employer] [employer] [facility] Allergies Active Allergy Reactions Criticality Noted Date Comments Bee Venom Swelling High 05/06/2023 Medications * Be aware that medications may not be up to date on this document. Alwaysverify current medications with the patient. 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 Active cilostazol (Pletal) 50 MG tablet Take 1 (one) tablet by mouth 2 times daily Active nicotine (Nicoderm CQ) 14 MG/24HR patchIndications:PVD (peripheral vascular disease) Apply 1 (one) patch to skin once daily 30 patch 2 10/21/2022 Active Active Problems Problem Noted Date Diagnosed Date Left-sided extracranial carotid artery stenosis 09/26/2022 Peripheral vascular disease 01/07/2017 Tobacco use 01/07/2017 Encounters Date Type Department Care Team Description 08/24/2024 9:30 AM SEWING TRIMMER Office Visit [facility] - Vascular Surgery [facility] [facility] [place] [phone] Arpita Garcia MD PAD (peripheral artery disease) (Primary Dx); Bilateral carotid artery stenosis 08/24/2024 Travel from Last 3 Months Immunizations Name Administration Dates Next Due INFLUENZA VACCINE 07/07/2022 Family History Medical History Relation Name Comments Heart Disease Father Status: Deceas ed Heart Disease Mother Status: Deceas ed Relation Name Status Comments Father Mother Social History Tobacco Use Types Packs/Day Years Used Date Smoking Tobacco: Every Day Cigarettes 1 35 Smokeless Tobacco: Never Tobacco Cessation:Ready to Q uit: Not Asked; Counseling Given: Not Answered Alcohol Use Standard Drinks/Week Comments Yes 24 (1 standard drink = 0.6 oz pu re alcohol) 8 beers every 2 -3 days AUDIT-C Answer Date Recorded Frequency of Alcohol Consumption Not on file 09/26/2022 Q2: How many drinks containi ng alcohol do you have on a typical day when you are drinking? Patient does not drink Frequency of Binge Drinking Not on file 09/10 Overall Financial Resource Strain (CARDIA) Answe r Date Recorded How hard is it for you to pa y for the very basics like food, housing, medical care, and heating? Not hard at all 09/26/2022 [facility] Occup[facility] ional [facility] - Occupational Stress Questionnaire Answer Date Recorded Do you feel stress - tense, restless, nervous, or anxious, or unable to sleep at night because your mind is troubled all the time - these days? To some extent 09/26/2022 Hunger Vital Sign Answer Date Recorded Within the past 12 months, y ou worried that your food would run out before you got the money to buy more. Never true 09/26/19 23 Within the past 12 months, t he food you bought just didn't last and you didn't have money to get more. Never true 09/26/2022 PRAPARE - Transportation Answer Date Re corded In the past 12 months, has l ack of transportation kept you from medical appointments or from getting medications? No 09/10 In the past 12 months, has l ack of transportation kept you from meetings, work, or from getting things needed for daily living? No 09/26/2022 Housing Stability Vital Sign Answer Adair e Recorded In the last 12 months, was t here a time when you were not able to pay the mortgage or rent on time? No 09/26/2022 Number of Places Lived in the Last Year Not on f ile 09/26/2022 Unstable Housing in the Last Year Not on file 09/26/2022 Sex and Gender Information Value Date Recorded Sex Assigned at Not on file Gender Identity Not on file Sexual Orientation Not on file Last Filed Vital Signs Vital Sign Reading Time Taken Comments Blood Pressure 164/110 08/24/2024 9:11 AM SEWING TRIMMER Pulse 68 08/24/2024 9:04 AM SEWING TRIMMER Temperature 36.4 C (97.6 F) 08/24/2024 9:04 AM SEWING TRIMMER Respiratory Rate 18 11/04/2023 9:39 AM CDT Oxygen Saturation 99% 08/24/2024 9:04 AM SEWING TRIMMER Inhaled Oxygen Concentration - - Weight 54.4 kg (120 lb) 08/24/2024 9:04 AM SEWING TRIMMER Height 157.5 cm (5' 2 ) 08/24/2024 9:04 AM SEWING TRIMMER Body Mass Index 21.95 08/24/2024 9:04 AM SEWING TRIMMER Plan of Treatment Upcoming Encounters Date Type Department Care Team (Late st Contact Info) Description 01/04/2025 10:00 AM CDT Appointment [facility] [address] [place] [address] Arpita Garcia MD [address] [place] [address] 2L [place] [phone] 01/04/2025 11:00 AM CDT Appointment [facility] [address] [place] [address] Arpita Garcia MD [facility] [facility] 2L [place] [phone] 01/04/2025 12:15 PM CDT Office Visit [facility] - Vascular Surgery [address] [place] [address], [place] [address] Arpita Garcia MD [facility] [facility] 2L [place] [phone] Health Maintenance Due Date Last Done Comments COLOGUARD (AGES 45-75) - COLON CA SCREENING 1958 COLON MONITORING 1958 COLONOSCOPY - COLON CA SCREENING 1958 CT COLONOGRAPHY - COLON CA SCREENING 1958 Colorectal Cancer Screening 1958 FIT - COLON CA SCREENING 1958 FLEX SIG - COLON CA SCREENING 1958 LIPID TESTING 1958 HEPATITIS C SCREENING 06/02/1976 DTAP/TDAP/TD VACCINES (1 - Tdap) 1977 PNEUMOCOCCAL VACCINE 50+ (1 of 2 - PCV) 1977 LUNG CANCER SCREENING 2008 ZOSTER VACCINE (1 of 2) 2008 AAA SCREENING 2023 COVID-19 VACCINE (1 - 2023- season) 2024 INFLUENZA VACCINE (#1) 2024 2, 05/31/2018, 06/15/2017, Additional history exists DEPRESSION SCREENING 08/10/2024 MEDICARE AWV CALENDAR YEAR 2024 Respiratory Syncytial Virus (RSV) Vaccine Pt: or over 60 yrs (1 - 1-dose 75+ series) 2033 HEPATITIS B VACCINE Aged Out No longe r eligible based on patient's age to complete this topic HIB VACCINE Aged Out No longer eligi ble based on patient's age to complete this topic HPV VACCINE Aged Out No longer eligi ble based on patient's age to complete this topic MENINGOCOCCAL (Group B) VACCINE SHARED DECISION-MAKING Aged Out No longer eligible based on patient's age to complete this topic MENINGOCOCCAL GROUPS A/C/Y/W VACCINE Aged Out No longer eligible based on patient's age to complete this topic Medical Devices Implanted Type Area Wire Preparation Machine Tender Device Identifier Shelf Expiration Date Model / Serial / Lot Patch Cv 6x1cm Vsgrd Bvn Pricrd Strl Implanted:Qty: 1 on 09/26/2022 by Arpita Garcia MD at [facility] Left: Carotid [employer] 08/29/2026 [id number] / / [id number] Advance Directives * Full Code (Latest Code Status on File) Date Activated Date Inactivated Comments 09/26/2022 10:02 AM 09/27/2022 12:29 PM Care Teams Ticket Agent Relationship Specialty [place] [address] [place] [phone] PCP - General Emergency Medicine 08/24/24
== END 2024-11-13 09:35 | disposition home or self-care (01) ==
PROVIDERS: PCP Emergency Medicine; Visit Provider Emergency Medicine
DX: R93.89 Abnormal findings on diagnostic imaging of other specified body structures (principal); M47.816 Spondylosis without myelopathy or radiculopathy, lumbar region; M47.817 Spondylosis without myelopathy or radiculopathy, lumbosacral region
CPT/HCPCS: 72148

== ENCOUNTER 2025-03-29 14:32 | Outpatient (CLI) | payer MEDICARE, MEDICAID, SELFPAY ==
--- OUTSIDE RECORDS SUMMARY | 2025-03-29 07:46 | XMS_ITS | Encounter Summary ---
Author Organization [facility] Address [address] [place] [address] Care Team Providers Care Health And Physical Education Professor Name Role Phone Nara Craig MD Primary Care Provider [phone] Reason for Referral * Radiology Services (Urgent) - Closed Specialty Diagnoses / Procedures Referred By Contac t Referred To Contact Computed Tomography / CT Scan Diagnoses PAD (peripheral artery disease) Procedures CT Angio Abdomen Aorta W Runoff Arpita Garcia MD [address] [place] [address] [address] [place] [address] Phone: tel: fax: [facility] CAT SCAN [address] [place] [address] Phone: tel: fax: Referral ID Status Reason Start Date Expiration Date Visits Re quested Visits Authorized [id number] Closed 03/08/2025 03/08/2026 1 1 Reason for Visit * Radiology Services (Urgent) - Closed Specialty Diagnoses / Procedures Referred By Contac t Referred To Contact Computed Tomography / CT Scan Diagnoses PAD (peripheral artery disease) Procedures CT Angio Abdomen Aorta W Runoff Arpita Garcia MD [address] [place] [address] [address] [place] [address] Phone: tel: fax: [facility] CAT SCAN [address] [place] [address] Phone: tel: fax: Referral ID Status Reason Start Date Expiration Date Visits Re quested Visits Authorized [id number] Closed 03/08/2025 03/08/2026 1 1 Encounter Details Date Type Department Care Team (Late st Contact Info) Description 03/29/2025 7:46 AM CDT Hospital Encounter [facility] CAT SCAN [address] [place] [address] Arpita Garcia MD [address] [facility] [address] [place] [address] Social History Tobacco Use Types Packs/Day Years Used Date Smoking Tobacco: Every Day Cigarettes 1 35 Smokeless Tobacco: Never Alcohol Use Standard Drinks/Week Comments Yes 24 [...] and heating? Not hard at all 09/26/2022 [facility] - Occupational Stress [...] at Not on file Legal Sex Male 5:14 PM PLAN COORDINATOR Gender Identity Not on file Sexual Orientation Not on file documented as of this encounter Functional Status * Is person deaf or have serious hearing difficulty? Answer Date of Assessment Author No 09/26/2022 6:18 PM PLAN COORDINATOR Tamiko Sage RN * Is person blind or have serious difficulty seeing? Answer Date of Assessment Author No 09/26/2022 6:18 PM PLAN COORDINATOR Tamiko Sage RN * Does person have serious difficulty walking/climbing stairs? Answer Date of Assessment Author No 09/26/2022 6:18 PM PLAN COORDINATOR Tamiko Sage RN * Does person have difficulty dressing/bathing? Answer Date of Assessment Author No 09/26/2022 6:18 PM Tamiko Guzman RN * Does person have difficulty doing errands alone? Answer Date of Assessment Author No 09/26/2022 6:18 PM Tamiko Guzman RN documented as of this encounter Mental Status * Does person have difficulty concentrating/remembering/making decisions? Answer Entry Date Author No 09/26/2022 6:18 PM Tamiko Guzman RN documented in this encounter Plan of Treatment Not on file documented as of this encounter Procedures Procedure Name Priority Date/Time Associated Diagnosis Comments CT ANGIO ABDOMEN AORTA W RUNOFF WALKER 03/29/2025 8:12 AM CDT PAD (peripheral artery disease) ISTAT CREATININE Routine 03/29/2025 8:02 AM CDT documented in this encounter Results * CT Angio Abdomen Aorta W Runoff (03/29/2025 8:12 AM CDT) Anatomical Region Laterality Modality Abdomen, Lower Extremity Compute d Tomography 03/29/2025 8:22 AM CDT Impressions 03/29/2025 9:58 AM CDT Impression: 1.Severe atherosclerotic disease of the abdominal aorta predominantly in the infrarenal portion extending to the iliac bifurcation with intramural thrombus and moderate to severe stenosis. 2.Severe multifocal stenosis of the right internal iliac, external iliac, and common femoral arteries. 3.Occluded right superficial femoral artery from its origin with distal one/third reconstitution. 4.Occluded left common iliac artery. Occluded left internal iliac artery from its origin with distal reconstitution. Occluded left external iliac artery with reconstitution of common femoral artery. Severe multifocal stenosis of the left common femoral and left superficial femoral arteries. 5.Bilateral mild to moderate multifocal stenosis of the three-vessel runoff to the ankle. 6.Unremarkable CT examination of the abdomen and pelvic viscera. > Dictated by Garrett Starkey MD, (Transit Vehicle Inspector). > Dictated by Transit Vehicle Inspector I, Clark Velazquez MD have personally reviewed and interpreted this examination/study. > Interpreting Provider: Clark Velazquez MD on 03/29/2025 9:58 AM Narrative 03/29/2025 9:58 AM CDT PROCEDURE: CT ANGIO ABDOMEN AORTA W RUNOFF, DATE/TIME OF EXAM: 03/29/2025 8:13 AM, LOCATION [facility] INDICATION: I73.9: PAD (peripheral artery disease) ADDITIONAL CLINICAL INFORMATION: Ordering Provider Reason For Exam: Rest pain in lower extremities COMPARISON: CT angiogram abdomen aorta with runoff 09/17/2022. TECHNIQUE: CT angiography of the abdomen, pelvis, and lower extremities was performed following the uneventful administration of 100 mL of Isovue 370 intravenous contrast according to standard protocol. Three dimensional postprocessing was performed by the technologist and sent to the workstation for review. Findings: Abdominal aorta: Atherosclerosis with mural thrombus most prominent in the infrarenal portion and near the iliac bifurcation with moderate to severe stenosis, unchanged from prior. Celiac axis and major branches: Patent without significant focal stenosis. Superior mesenteric artery: Atherosclerotic but patent without significant focal stenosis. Inferior mesenteric artery: Occluded Right renal artery: Atherosclerotic but patent without significant focal stenosis. Left renal artery: Atherosclerotic but patent without significant focal stenosis. Right common iliac artery: Atherosclerotic with moderate multifocal stenoses. Right internal iliac artery: Atherosclerotic with severe multifocal stenoses. Right external iliac artery: Atherosclerotic with moderate to severe multifocal stenoses. Right common femoral artery: Atherosclerotic with severe multifocal stenoses. Right profunda femoris artery: Atherosclerotic but patent without significant focal stenosis. Right superficial femoral artery: Occluded from its origin with distal one/third reconstitution Right popliteal artery: Atherosclerotic with moderate multifocal stenoses. Right anterior tibial artery: Atherosclerotic moderate proximal stenosis with normal distally. This vessel crosses the ankle and supplies the dorsalis pedis artery. Right tibioperoneal trunk: Atherosclerotic with moderate multifocal stenoses. Right posterior tibial artery: Atherosclerotic but patent without significant focal stenosis. This vessel crosses the ankle and supplies the plantar artery. Right peroneal artery: Atherosclerotic but patent without significant focal stenosis. Left common iliac artery: Occluded Left internal iliac artery: Occluded from its origin and distal reconstitution Left external iliac artery: Occluded with reconstitution of common femoral artery Left common femoral artery: Atherosclerotic with severe multifocal stenoses. Left profunda femoris artery: Patent without significant focal stenosis. Left superficial femoral artery: Atherosclerotic with severe multifocal stenoses. Left popliteal artery: Atherosclerotic with moderate multifocal stenoses. Left anterior tibial artery: Atherosclerotic with mild multifocal stenoses. This vessel crosses the ankle and supplies the dorsalis pedis artery. Left tibioperoneal trunk: Atherosclerotic with moderate multifocal stenoses. Left posterior tibial artery: Atherosclerotic but patent without significant focal stenosis. This vessel crosses the ankle and supplies the plantar artery. Left peroneal artery: Atherosclerotic but patent without significant focal stenosis. Lower Chest: Emphysematous changes. Mild dependent atelectasis in lung bases. The coronary arteries are atherosclerotic. Liver: Normal. Gallbladder and Bile Ducts: Normal. Spleen: Normal. Pancreas: A tiny calcification in the pancreatic distal body/tail. No pancreatic duct dilation. Adrenals: Thickening of the bilateral adrenal glands. Kidneys: A subcentimeter cyst in the left kidney. No hydronephrosis or solid mass. Gastrointestinal: The stomach and visualized loops of large and small bowel are unremarkable. The appendix is not seen; however, no inflammatory changes are seen in the right lower quadrant. Mesentery/Peritoneum/Retroperitoneum: No free intraperitoneal air. No free fluid in the abdomen or pelvis. Bladder: Normal. Reproductive Organs: The prostate is enlarged, measuring 5.7 cm. Bones: Bone windows demonstrate no suspicious lytic or blastic lesions. The visible osseous structures are intact. Degenerative changes are seen in the spine. Redemonstrated irregular serpentiginous shape sclerotic finding in the distal right femur, may represent bone infarct. The bones are osteopenic. Soft tissues: Soft tissue edema in the bilateral feet. Procedure Note Clark Velazquez MD - 03/29/2025 PROCEDURE: CT ANGIO ABDOMEN AORTA W RUNOFF, DATE/TIME OF EXAM:03/29/2025 8:13 AM, LOCATION [facility] INDICATION: I73.9: PAD (peripheral artery disease) ADDITIONAL CLINICAL INFORMATION: Ordering Provider Reason For Exam: Rest pain in lower extremities COMPARISON: CT angiogram abdomen aorta with runoff 09/17/2022. TECHNIQUE: CT angiography of the abdomen, pelvis, and lower extremitieswas performed following the uneventful administration of 100 mL of Kxspmk420 intravenous contrast according to standard protocol. Three dimensional postprocessing was performed by the technologist and sent to the workstation for review. Findings: Abdominal aorta: Atherosclerosis with mural thrombus most prominent inthe infrarenal portion and near the iliac bifurcation with moderate tosevere stenosis, unchanged from prior. Celiac axis and major branches: Patent without significant focalstenosis. Superior mesenteric artery: Atherosclerotic but patent withoutsignificant focal stenosis. Inferior mesenteric artery: Occluded Right renal artery: Atherosclerotic but patent without significant focal stenosis. Left renal artery: Atherosclerotic but patent without significant focal stenosis. Right common iliac artery: Atherosclerotic with moderate multifocal stenoses. Right internal iliac artery: Atherosclerotic with severe multifocal stenoses. Right external iliac artery: Atherosclerotic with moderate to severe multifocal stenoses. Right common femoral artery: Atherosclerotic with severe multifocal stenoses. Right profunda femoris artery: Atherosclerotic but patent without significant focal stenosis. Right superficial femoral artery: Occluded from its origin with distal one/third reconstitution Right popliteal artery: Atherosclerotic with moderate multifocalstenoses. Right anterior tibial artery: Atherosclerotic moderate proximal stenosis with normal distally. This vessel crosses the ankle and supplies the dorsalis pedis artery. Right tibioperoneal trunk: Atherosclerotic with moderate multifocal stenoses. Right posterior tibial artery: Atherosclerotic but patent without significant focal stenosis. This vessel crosses the ankle and suppliesthe plantar artery. Right peroneal artery: Atherosclerotic but patent without significantfocal stenosis. Left common iliac artery: Occluded Left internal iliac artery: Occluded from its origin and distal reconstitution Left external iliac artery: Occluded with reconstitution of commonfemoral artery Left common femoral artery: Atherosclerotic with severe multifocal stenoses. Left profunda femoris artery: Patent without significant focal stenosis. Left superficial femoral artery: Atherosclerotic with severe multifocal stenoses. Left popliteal artery: Atherosclerotic with moderate multifocalstenoses. Left anterior tibial artery: Atherosclerotic with mild multifocalstenoses. This vessel crosses the ankle and supplies the dorsalis pedis artery. Left tibioperoneal trunk: Atherosclerotic with moderate multifocal stenoses. Left posterior tibial artery: Atherosclerotic but patent without significant focal stenosis. This vessel crosses the ankle and suppliesthe plantar artery. Left peroneal artery: Atherosclerotic but patent without significantfocal stenosis. Lower Chest: Emphysematous changes. Mild dependent atelectasis in lung bases. The coronary arteries are atherosclerotic. Liver: Normal. Gallbladder and Bile Ducts: Normal. Spleen: Normal. Pancreas: A tiny calcification in the pancreatic distal body/tail. No pancreaticduct dilation. Adrenals: Thickening of the bilateral adrenal glands. Kidneys: A subcentimeter cyst in the left kidney. No hydronephrosis or solidmass. Gastrointestinal: The stomach and visualized loops of large and small bowel areunremarkable. The appendix is not seen; however, no inflammatory changes are seen inthe right lower quadrant. Mesentery/Peritoneum/Retroperitoneum: No free intraperitoneal air. No free fluid in the abdomen or pelvis. Bladder: Normal. Reproductive Organs: The prostate is enlarged, measuring 5.7 cm. Bones: Bone windows demonstrate no suspicious lytic or blastic lesions. The visible osseous structures are intact. Degenerative changes are seen inthe spine. Redemonstrated irregular serpentiginous shape sclerotic findingin the distal right femur, may represent bone infarct. The bones are osteopenic. Soft tissues: Soft tissue edema in the bilateral feet. Impression: 1.Severe atherosclerotic disease of the abdominal aorta predominantly in the infrarenal portion extending to the iliac bifurcation withintramural thrombus and moderate to severe stenosis. 2.Severe multifocal stenosis of the right internal iliac, externaliliac, and common femoral arteries. 3.Occluded right superficial femoral artery from its origin with distal one/third reconstitution. 4.Occluded left common iliac artery. Occluded left internal iliac artery from its origin with distal reconstitution. Occluded left external iliac artery with reconstitution of common femoral artery. Severe multifocal stenosis of the left common femoral and left superficial femoralarteries. 5.Bilateral mild to moderate multifocal stenosis of the three-vesselrunoff to the ankle. 6.Unremarkable CT examination of the abdomen and pelvic viscera. > Dictated by Garrett Starkey MD, (Transit Vehicle Inspector). > Dictated by Transit Vehicle Inspector I, Clark Velazquez MD have personally reviewed and interpreted this examination/study. > Interpreting Provider: Clark Velazquez MD on 59:58 AM us Arpita Garcia MD CT ORDERABLES Final Resul t * (ABNORMAL) ISTAT CREATININE (03/29/2025 8:02 AM CDT) [facility] Creatinine POCT 1.00 0.60 - 1.30 mg/dL 03/29/2025 8:03 AM CDT [facility] eGFR by CKD-EPI 83(L) >90 mL/min/1.7 3 m2 03/29/2025 8:03 AM CDT [facility] Sample iSTAT HEAVEN 03/29/2025 8:03 AM CDT [facility] Blood BLOOD SPECIMEN / Unknown 03/29/2025 8:02 AM CDT 03/29/2025 8:03 AM CDT us Arpita Garcia MD LAB - POINT OF CARE ORDERAB LES Final Result Performing Organization Address City/State/[facility] Co de Phone Number [address] [address], [facility] [phone] documented in this encounter Visit Diagnoses Diagnosis PAD (peripheral artery disease) Unspecified disorders of arteries and arterioles documented in this encounter Administered Medications Active Administered Medications - up to 3 most recent administrations Medication Order MAR Action Action Date Dose Rate Site iopamidol (Isovue 370) 76 % contrast Intravenous, CONTRAST ONCE, Starting on Thu03/29/25 at 0754, Until Thu03/31/25 at 0753 $ Given - Contrast 03/29/2025 8:13 AM CDT 125 mL documented in this encounter Care Teams Health And Physical Education Professor Relationship Specialty Start Date End Date Nara Craig [place] [address] PCP - General Emergency Medicine 08/24/24 documented as of this encounter
--- OUTSIDE RECORDS SUMMARY | 2025-03-29 09:45 | XMS_ITS | Encounter Summary ---
Author Organization [facility] Address [address] [place] [address] Care Team Providers Care Collection Systems Worker Name Role Phone Nara Craig MD Primary Care Provider [phone] Reason for Referral * Radiology Services (Routine) - Open Specialty Diagnoses / Procedures Referred By Contac t Referred To Contact Diagnoses Preop cardiovascular exam Procedures NM Myocard Perf Rest Stress NM Myocard Perf Rest Stress Arpita Garcia MD [address] [place] [address] [address] [place] [address] Phone: tel: fax: Referral ID Status Reason Start Date Expiration Date Visits Re quested Visits Authorized [id number] Open 03/29/2025 03/29/2026 1 1 Reason for Visit * Reason Comments Follow-up Ct fu Peripheral Artery Disease Encounter Details Date Type Department Care Team (Late st Contact Info) Description 03/29/2025 9:45 AM CDT Office Visit [facility] - Vascular Surgery [address] [place] [address], [place] [address] Arpita Garcia MD [address] [place] [address] [address] [place] [address] Preop cardiovascular exam (Primary Dx) Social History Tobacco Use Types Packs/Day Years [...] and heating? 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 Answer Date of Assessment Author No 09/26/2022 6:18 PM Tamiko Guzman RN * Is person blind or have serious difficulty seeing? Answer Date of Assessment Author No 09/26/2022 6:18 PM Tamiko Guzman RN * Does person have serious difficulty walking/climbing stairs? Answer Date of Assessment Author No 09/26/2022 6:18 PM Tamiko Guzman RN * Does person have difficulty dressing/bathing? [...] Tamiko Guzman RN documented in this encounter Patient Instructions * Patient Instructions* Vee Justin RN - 03/29/2025 10:05 AM CDT You will be called to schedule a cardiac stress test. We will call with the plan of care. Call the office with any questions or concerns [phone] documented in this encounter Progress Notes * Arpita Garcia MD - 03/29/2025 10:04 AM CDT Vascular Surgery History and Physical Encounter Date: 03/29/2025 Patient's Primary Care Physician: Nara Craig MD Name: Robin Self Age: [age] year old Sex: male Date: 03/29/2025 Chief Complaint: PAD, left leg numbness/pain History of Present Illness: Robin Self is a 64 year old male with PMHx s/f PAD, bilateral carotid stenosis s/p L carotid endarterectomy, and tobacco use who presents here today for follow up after CTA to discuss possible intervention. Patient reports that since last visit, she continues to have numbness in the bilateral feet, L>R, while lying down. He also endorses pain in the medial left great toe. He has burning in his posterior calves with walking but denies any pain or numbness while sitting in clinic today. He has been taking aspirin and decreased his smoking to 4 cigarettes yesterday with nicotine patches. He has not been on a statin, states that he's not sure if they weren't prescribed to him but he has not picked them up. Patient denies any chest pain, fevers, chills, abdominal pain. Denies prior abdominal surgeries. Endorses SOB with activity, thinks that it's from his emphysema. Is scheduled to get PFTs at [facility] today. Past Medical History: Past Medical History[1] Past Surgical History: Past Surgical History[2] Home Medications: Medications[3] Allergies: Allergies[4] Social History: Social History[5] Family History: Family History[6] Exam Vitals: 03/29/25 0859 BP: 123/81 Pulse: 64 Weight: 49.9 kg (110 lb) Height: 1.575 m (5' 2) BP 123/81 Pulse 64 Ht 1.575 m (5' 2) Wt 49.9 kg (110 lb) Physical Exam: Gen: NAD and A&O x 3 ENT: Normocephalic and EOMI Resp: unlabored breathing on RA CV: RRR Abd: Soft, Non-distended, and Non-peritoneal, no rebound/guarding MSK: moves all four limbs spontaneously, ambulates without difficulty, pulse exam: Present palpableR femoral, monophasic L femoral (not palpable) and R DP/PT, unable to doppler L DP/PT, both feet are cold to touch Psych: Appropriate mood and affect Data Recent Labs Component Name 09/26/22 9255 09/17/22 1107 WBC 9.0 9.5 HGB 11.4* 13.2 HCT 32.8* 39.5 Recent Labs Component Name 09/26/22 2335 09/26/22 1125 09/17/22 1107 NA 137 - 137 CL 105 - 102 CO2 23 - 25 BUN 12 - 9 CREATININE 0.72 - 0.79 CALCIUM 8.6 - 9.3 MAGNESIUM - 1.8 - No results for input(s): PROT, ALB, TBILI, AST, ALT, ALKPHOS in the last 05430 hours. No results for input(s): PROTIME, INR, PTT in the last [address] Angio Abdomen Aorta W Runoff Result Date: 03/29/2025 PROCEDURE: CT ANGIO ABDOMEN AORTA W RUNOFF, DATE/TIME OF EXAM: 03/29/2025 8:13 AM, LOCATION [facility] INDICATION: I73.9: PAD (peripheral artery disease) [...] near the iliac bifurcation with moderate to severestenosis, unchanged from prior. Celiac axis and major branches: Patent without significant focal stenosis. Superior mesenteric artery: Atherosclerotic but patent without significant focal stenosis. Inferior mesenteric artery: Occluded Right renal artery: Atherosclerotic but patent without significant focal stenosis. Left renal artery: Atherosclerotic but patent without significant focal stenosis.Right common iliac artery: Atherosclerotic with moderate multifocal [...] This vessel crosses the ankle and supplies thedorsalis pedis artery. Left tibioperoneal trunk: Atherosclerotic with moderate multifocal stenoses.Left posterior tibial artery: Atherosclerotic but patent without [...] of the abdominal aorta predominantly in the infrarenalportion extending to the iliac bifurcation with intramural thrombus and moderate to severe stenosis. 2.Severe multifocal stenosis of the right internal iliac, external iliac, and common femoral arteri es. 3.Occluded right superficial femoral artery from its [...] viscera. > Dictated by Garrett Starkey MD, (Christian Science Healer). > Dictated by Christian Science Healer I, Clark Velazquez MD have personally reviewed and interpreted this examination/study. > Interpreting Provider: Clark Velazquez MD on 03/29/2025 9:[address] Angio Abdomen Aorta W Runoff Result Date: 03/29/2025 Impression: 1.Severe atherosclerotic disease of the abdominal aorta predominantly in the infrarenalportion extending to the iliac bifurcation with intramural thrombus and moderate to severe stenosis. 2.Severe multifocal stenosis of the right internal iliac, external iliac, and common femoral arteri es. 3.Occluded right superficial femoral artery from its [...] viscera. > Dictated by Garrett Starkey MD, (Christian Science Healer). > Dictated by Christian Science Healer I, Clark Velazquez MD have personally reviewed and interpreted this examination/study. > Interpreting Provider: Clark Velazquez MD on 03/29/2025 9:58 AM Assessment: Robin Self is a 64 year old male with PAD, bilateral carotid stenosis s/p L carotidendarterectomy, and tobacco use who presents here today for follow up after CTA to discuss possibleintervention for bilateral feet numbness and pain. ABIs from one month prior were 0.46 on the left and 0.54 on the right, CTA from today shows occlusion in the bilateral iliac arteries with distal reconstitution. Patient has SOB without chest pain, will have patient complete PFTs and cardiac stresstest prior to surgical intervention. Will plan for an aortobifemoral bypass if preop testing permits. Plan: - will have patient complete cardiac stress test to assess his cardiac function, no prior history of cardiac issues per patient - will follow up on results of PFTs from today - will reach out to patient with further plans, possible aortobifem bypass, after testing is completed Patient seen and discussed with Dr. Arpita Garcia. Julia Martinez MD Surgery PGY-1 03/29/2025 10:05 AM Attending/Teaching Physician Documentation I have seen and examined the patient with the resident, independently reviewed lab and imaging results and I agree with the findings and plan of care as documented by the resident. Date of Service isdate of resident signature in resident note [1] Past Medical History: Diagnosis Date Emphysema lung (HCC) Hemorrhoids ICAO (internal carotid artery occlusion), left 2021 PAD (peripheral artery disease) PVD (peripheral vascular disease) SOB (shortness of breath) [2] Past Surgical History: Procedure Laterality Date Carotid Endarterectomy Left 09/26/2022 Left; LEFT SIDED CAROTID ENDARTERECTOMY COLONOSCOPY WITH POLYPECTOMY 2018 Wrist Fracture Repair Right [3] Current Outpatient Medications Medication Sig aspirin EC (Ecotrin) 81 MG tablet Take 1 (one) tablet by mouth once daily Reasons: Disease involving Lipid Deposits in the Arteries cilostazol (Pletal) 50 MG tablet Take 1 (one) tablet by mouth 2 times daily (Patient not taking: Reported on 03/29/2025) losartan (Cozaar) 50 MG tablet nicotine (Nicoderm CQ) 14 MG/24HR patch Apply 1 (one) patch to skin once daily omeprazole (PriLOSEC) 40 MG capsule Take 1 (one) capsule by mouth once daily (Patient not taking: Reported on 03/29/2025) pantoprazole EC (Protonix) 40 MG tablet Take 1 (one) tablet by mouth once daily (Patient not taking: Reported on 03/29/2025) rosuvastatin (Crestor) 20 MG tablet (Patient not taking: Reported on 03/29/2025) No current facility-administered medications for this visit. Facility-Administered Medications Ordered in Other Visits Medication iopamidol (Isovue 370) 76 % contrast [4] Allergies Allergen Reactions Bee Venom Swelling [5] Social History Socioeconomic History Marital status: Single Tobacco Use Smoking status: Every Day Current packs/day: 1.00 Average packs/day: 1 pack/day for 35.0 years (35.0 ttl pk-yrs) Types: Cigarettes Smokeless tobacco: Never Vaping Use Vaping status: Never Used Substance and Sexual Activity Alcohol use: Yes Alcohol/week: 24.0 standard drinks of alcohol Types: 24 Cans of beer per week Comment: 8 beers every 2 -3 days Drug use: Yes Types: Marijuana Comment: daily joints 3 daily [6] Family History Problem Relation Name Age of Onset Heart Disease Mother Status: Heart Disease Father Status: documented in this encounter Plan of Treatment Scheduled Orders Name Type Priority Associated Diagnoses Orde r Schedule NM Myocard Perf Rest Stress Cardiac Nuc Med Routine Preop cardiovascular exam 1 Occurrences starting 03/29/2025 until 03/29/2026 documented as of this encounter Visit Diagnoses Diagnosis Preop cardiovascular exam- Primary Pre-operative cardiovascular examination documented in this encounter Care Teams Collection Systems Worker Relationship Specialty Start Date End Date Nara Craig MD [address] [place] [address] PCP - General Emergency Medicine 08/24/24 documented as of this encounter
--- OUTSIDE RECORDS SUMMARY | 2025-03-29 15:05 | XMS_ITS | Clinical Summary ---
Author Organization [email or web address] Address [address] [place] [address] Care Team Providers Care Radiology Rn Name Role Phone Nara Craig MD Primary Care Provider [phone] Source Comments [email or web address],non-owned Affiliates and Associated Physician Practices is amultiple site organization consisting of ambulatory clinics and hospital sitesin [place], [place], [place] and [place]. This disclosure is being madepursuant to the Care Everywhere program and may not contain all information available regarding this patient. Last updated 18.[email or web address] Allergies Active Allergy Reactions Criticality Noted Date Comments Bee Venom Swelling High 05/06/2023 Medications * Be aware that medications may not be up to date on this document. Alwaysverify current medications with the patient. aspirin EC (Ecotrin) 81 MG tabletIndicatio ns:Atherosclero tic Disease Take 1 (one) tablet by mouth once daily Reasons: Disease involving Lipid Deposits in the Arteries Active cilostazol (Pletal) 50 MG tablet Take 1 (one) tablet by mouth 2 times daily Active nicotine (Nicoderm CQ) 14 MG/24HR patchIndication s:PVD (peripheral vascular disease) Apply 1 (one) patch to skin once daily 30 patch 2 3 Active losartan (Cozaar) 50 MG tablet 5 Active omeprazole (PriLOSEC) 40 MG capsule Take 1 (one) capsule by mouth once daily 5 Active rosuvastatin (Crestor) 20 MG tablet 5 Active pantoprazole EC (Protonix) 40 MG tablet Take 1 (one) tablet by mouth once daily 02/22/20 26 Active Active Problems Problem Noted Date Diagnosed Date Left-sided extracranial carotid artery stenosis 09/26/2022 Peripheral vascular disease 01/07/2017 Tobacco use 01/07/2017 Encounters Date Type Department Care Team Description 03/29/2025 9:45 AM CDT Office Visit [facility] - Vascular Surgery [address] [place] [phone] Aprita Garcia MD Preop cardiovascular exam (Primary Dx) 03/29/2025 7:46 AM CDT Hospital Encounter [facility] SCAN [address] [place] [address] Arpita Garcia MD 03/29/2025 Travel 03/08/2025 9:45 AM CDT Office Visit [facility] - Vascular Surgery [address] [place] [phone] Arpita Garcia MD PAD (peripheral artery disease) (Primary Dx) 03/08/2025 Travel 02/27/2025 Travel 02/20/2025 8:22 AM CDT - 02/20/2025 11:59 PM CDT Hospital Encounter [facility] VASCULAR US [address] [place] [address] Arpita Garcia MD Discharge Disposition: Home or Self Care 02/20/2025 8:19 AM CDT - 02/20/2025 8:21 AM CDT Hospital Encounter [facility] VASCULAR US [address] [place] [address] Arpita Garcia MD Discharge Disposition: Home or Self Care 01/04/2025 12:15 PM CDT Office Visit [facility] - Vascular Surgery [address] [place] [phone] Arpita Garcia MD PAD (peripheral artery disease) (Primary Dx) 01/04/2025 Travel from Last 3 Months Immunizations Immunization Administration Dates Next Due INFLUENZA VACCINE 07/07/2022 [...] and heating? 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 Gender Identity Not on file Sexual Orientation Not on file Last Filed Vital Signs Vital Sign Reading Time Taken Comments Blood Pressure 123/81 03/29/2025 8:59 AM CDT Pulse 64 03/29/2025 8:59 AM CDT Temperature 36.8 C (98.2 F) 03/08/2025 9:25 AM CDT Respiratory Rate 18 11/04/2023 9:39 AM CDT Oxygen Saturation 98% 03/08/2025 9:25 AM CDT Inhaled Oxygen Concentration - - Weight 49.9 kg (110 lb) 03/29/2025 8:59 AM CDT Height 157.5 cm (5' 2) 03/29/2025 8:59 AM CDT Body Mass Index 20.12 03/29/2025 8:59 AM CDT Plan of Treatment Health Maintenance Due Date Last Done Comments COLOGUARD (AGES 45-75) - COLON CA SCREENING 1958 CT COLONOGRAPHY - COLON CA SCREENING 1958 FIT - COLON CA SCREENING 1958 FLEX SIG - COLON CA SCREENING 1958 HEPATITIS C SCREENING 06/02/1976 DTAP/TDAP/TD VACCINES (1 - Tdap) 1977 PNEUMOCOCCAL VACCINE 50+ (1 of 2 - PCV) 1977 LUNG CANCER SCREENING 2008 ZOSTER VACCINE (1 of 2) 2008 Respiratory Syncytial Virus (RSV) Vaccine Pt: or over 60 yrs (1 - Risk 60-74 years 1-dose series) 2018 AAA SCREENING 2023 COVID-19 VACCINE ( - season) 2024 DEPRESSION SCREENING 08/10/2024 MEDICARE AWV CALENDAR YEAR 2024 INFLUENZA VACCINE (#1) 2025 2, 05/31/2018, 06/15/2017, Additional history exists COLON MONITORING 02/21/2035 02/21/2025 COLONOSCOPY - COLON CA SCREENING 02/21/2035 02/21/2025 Colorectal Cancer Screening 02/21/2035 HEPATITIS B VACCINE Aged Out No longe [...] this topic Medical Devices Implanted Type Area Butter Wrapper Device Identifier Shelf Expiration Date Model / Serial / Lot Patch Cv 6x1cm Vsgrd Bvn Pricrd Strl Implanted:Qty: 1 on 09/26/2022 by Arpita Garcia MD at [facility] Left: Carotid [employer] 08/29/2026 [id number] / / [id number] Procedures Procedure Name Priority Date/Time Associated Diagnosis Comments CT ANGIO ABDOMEN AORTA W RUNOFF WALKER 03/29/2025 8:12 AM CDT PAD (peripheral artery disease) ISTAT CREATININE Routine 03/29/2025 8:02 AM CDT VAS CAROTID DUPLEX BILATERAL Routine 02/20/2025 9:18 AM CDT Bilateral carotid artery stenosis VAS ARTERIAL ANKLE ARM INDEX Routine 02/20/2025 9:18 AM CDT PAD (peripheral artery disease) from Last 3 Months Results * CT Angio Abdomen Aorta W [...] viscera. > Dictated by Garrett Starkey MD, (Cloud Security Architect). > Dictated by Cloud Security Architect I, Clark Velazquez MD have personally reviewed and interpreted this examination/study. > Interpreting Provider: Clark Velazquez MD on 03/29/2025 9:58 AM Narrative 03/29/2025 9:58 AM CDT PROCEDURE: CT ANGIO ABDOMEN AORTA W RUNOFF, DATE/TIME OF EXAM: 03/29/2025 8:13 AM, LOCATION [facility] INDICATION: I73.9: PAD (peripheral artery disease) ADDITIONAL [...] RUNOFF, DATE/TIME OF EXAM:03/29/2025 8:13 AM, LOCATION [facility] INDICATION: I73.9: PAD (peripheral artery disease) ADDITIONAL CLINICAL INFORMATION: Ordering Provider Reason For Exam: Rest pain in lower extremities COMPARISON: CT angiogram abdomen aorta with runoff 09/17/2022. TECHNIQUE: CT angiography of the abdomen, pelvis, and lower extremitieswas performed following the uneventful administration of 100 mL of [id number] intravenous contrast according to standard protocol. Three [...] viscera. > Dictated by Garrett Starkey MD, (Cloud Security Architect). > Dictated by Cloud Security Architect I, Clark Velazquez MD have personally reviewed and interpreted this examination/study. > Interpreting Provider: Clark Velazquez MD on 59:58 AM Arpita Garcia MD CT ORDERABLES Final Resul t * (ABNORMAL) ISTAT CREATININE (03/29/2025 8:02 AM CDT) Creatinine POCT 1.00 0.60 - 1.30 mg/dL 03/29/2025 8:03 AM CDT [facility] eGFR by CKD-EPI 83(L) >90 mL/min/1.7 3 m2 03/29/2025 8:03 AM CDT [facility] Sample iSTAT HEAVEN 03/29/2025 8:03 AM CDT [facility] Blood BLOOD SPECIMEN / Unknown 03/29/2025 8:02 AM CDT 03/29/2025 8:03 AM CDT us Arpita Garcia MD LAB - POINT OF CARE ORDERAB LES Final Result [address] [phone], [facility] [phone] * VAS Carotid Duplex Bilateral (02/20/2025 9:18 AM CDT) Anatomical Region Laterality Modality Neck Intravascular Ul trasound 02/20/2025 8:34 AM CDT Narrative Procedure Note Wolfgang Lindsey MD - 02/20/2025 us Arpita Garcia MD VASCULAR LAB ORDERABLES Wilbert koko Result - Final * VAS Arterial Ankle Arm Index (02/20/2025 9:18 AM CDT) Anatomical Region Laterality Modality Ankle / Foot, Upper Extremity In travascular Ultrasound 02/20/2025 8:46 AM CDT Narrative Procedure Note Wolfgang Lindsey MD - 02/20/2025 us Arpita Garcia MD VASCULAR LAB ORDERABLES Wilbert koko Result - Final from Last 3 Months Insurance MEDICAID - [place] [facility] MANAGED MEDICARE [facility] Advance Directives * Full Code (Latest Code Status on File) Date Activated Date Inactivated Comments 09/26/2022 10:02 AM 09/27/2022 12:29 PM Care Teams Radiology Rn Relationship Specialty Start Date End Date Nara Craig MD [address] [place] [phone] PCP - General Emergency Medicine 08/24/24
--- OUTSIDE RECORDS SUMMARY | 2025-03-29 15:05 | XMS_ITS | Encounter Summary ---
Author Organization [facility] Address [address] [place] [address] Care Team Providers Care Tassel Snipper Name Role Phone Nara Craig MD Primary Care Provider [phone] Reason for Visit * Reason Onset Date Comments Question 11/29/2024 Patient called o n 11/28/24 - returned the call today 11/29/24. No answer - vm full. Encounter Details Date Type Department Care Team (Late st Contact Info) Description 11/29/2024 Telephone [facility] - Vascular Surgery [address] [place] [address], [facility] [place] [address] Arpita Garcia MD [address] [place] [address] [place] [address] Question (Patient called on 11/28/24 - returned the call today 11/29/24. No answer - vm full.) Social History Tobacco Use Types Packs/Day Years [...] file 09/10 Overall Financial Resource Strain (CARDIA) Cindye r Date Recorded How hard is it for you to pa y for the very basics like food, housing, medical care, and heating? Not hard at all 09/26/2022 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 Answer Entry Date Author No 09/26/2022 6:18 PM Tamiko Guzman RN documented in this encounter Miscellaneous Notes * Telephone Encounter - Ivonne Silva - 11/29/2024 8:54 AM CDT Patient called yesterday. Returned call - no answer - vm full. documented in this encounter Plan of Treatment Not on file documented as of this encounter Visit Diagnoses Not on filedocumented in this encounter Care Teams Tassel Snipper Relationship Specialty Start Date End Date Nara Craig MD [address] [place] [phone] PCP - General Emergency Medicine 08/24/24 documented as of this encounter
--- OUTSIDE RECORDS SUMMARY | 2025-03-29 15:05 | XMS_ITS | Encounter Summary ---
Author Organization [facility] Address [address] [place] [address] Care Team Providers Care Coffee Maker Name Role Phone Nara Craig MD Primary Care Provider Encounter Details Date Type Department Care Team (Latest Contact Info) Description 02/23/2025 Results Follow-Up [facility] Medical Group Gastroenterology at [address] [place] [address] Marcella Calabrese MD [address] [place] [address] [address] [place] [address] Surgical pathology Social History Tobacco Use Types Packs/Day Years Used Date Smoking Tobacco: Some Days Cigarettes 0.5 40.6 Started: 1984 Passive Exposure Comments:Cu rrently trying to quit AUDIT-C Answer Date Recorded Q1: How often do you have a drink containing alc ohol? 2-4 times a month 02/21/2025 Q2: How many drinks containi ng alcohol do you have on a typical day when you are drinking? 5 or 6 02/21/2025 Q3: How often do you have si x or more drinks on one occasion? Monthly 02/21/2025 Personal Safety Answer Date Recorded Have you ever been in or are you currently in a harmful physical or emotional relationship or is someone making you feel afraid or unsafe? 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
--- OUTSIDE RECORDS SUMMARY | 2025-03-29 15:05 | XMS_ITS | Encounter Summary ---
Author Organization [facility] Address [address] [place] [address] Care Team Providers Care Caseworker Protective Services Name Role Phone Nara Craig MD Primary Care Provider [phone] Encounter Details Date Type Department Care Team (Latest Contact Info) Description 03/29/2025 Travel Social History Tobacco Use Types Packs/Day Years [...] and heating? 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 Answer Date of Assessment Author No 09/26/2022 6:18 PM MEDICAL DOCTOR MD Tamiko Sage RN * Is person blind or have serious difficulty seeing? Answer Date of Assessment Author No 09/26/2022 6:18 PM MEDICAL DOCTOR MD Tamiko Sage RN * Does person have serious difficulty walking/climbing stairs? Answer Date of Assessment Author No 09/26/2022 6:18 PM Tamiko Guzman RN * Does person have difficulty dressing/bathing? Answer Date of Assessment Author No 09/26/2022 6:18 PM MEDICAL DOCTOR MD Tamiko Sage RN * Does person have difficulty doing errands alone? Answer Date of Assessment Author No 09/26/2022 6:18 PM MEDICAL DOCTOR MD Tamiko Sage RN documented as of this encounter Mental Status * Does person have difficulty concentrating/remembering/making decisions? Answer Entry Date Author No 09/26/2022 6:18 PM Tamiko Guzman RN documented in this encounter Plan of Treatment Not on file documented as of this encounter Visit Diagnoses Not on filedocumented in this encounter Care Teams Caseworker Protective Services Relationship Specialty Start Date End Date Nara Craig MD [address] [place] [id number] PCP - General Emergency Medicine 08/24/24 documented as of this encounter
--- OUTSIDE RECORDS SUMMARY | 2025-03-29 15:05 | XMS_ITS | Clinical Summary ---
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 Neck pain 07/19/2024 Shoulder pain 07/19/2024 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 Pain in toe 04/04/2024 Personal history of colonic polyps 04/01/2024 Encounter for screening colonoscopy 04/01/2024 Dysphagia 04/01/2024 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 Cigarette smoker 03/10/2024 [...] Encounters Date Type Department Care Team Description 02/23/2025 Results Follow-Up [facility] Gastroenterology at [address] [place] [address] Marcella Calabrese MD Surgical pathology 02/21/2025 9:05 AM CDT Anesthesia Event [address] [address] Amaury Davison MD 02/21/2025 9:00 AM CDT - 02/21/2025 9:30 AM CDT Surgery [address] [address] Marcella Calabrese MD COLON REMOVAL SNARE 02/21/2025 7:54 AM CDT - 02/21/2025 10:16 AM CDT Hospital Encounter [address] [address] Marcella Calabrese MD Personal history of colonic polyps; Dysphagia, unspecified type; History of colonic polyps Discharge Disposition: Discharge to home or self care from Last 3 Months Surgical History Surgery Date Site/Laterality Comments COLONOSCOPY 04/10/2016 - 05/09/2016 COLONOSCOPY 02/21/2025 Medical History Medical History Date Comments COPD (chronic obstructive pulmonary disease) Hypertension Family History Medical History Relation Name Comments Heart disease Father Heart disease Mother Colon cancer Neg Hx Relation Name Status Comments Father Mother Social History Tobacco Use Types Packs/Day Years Used Date Smoking Tobacco: Some Days Cigarettes 0.5 40.6 Started: 1984 Tobacco Cessation:Ready to Q uit: Not Asked; Counseling Given: Not Answered Passive Exposure Comments:Currently trying to quit AUDIT-C Answer Date Recorded [...] on file 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[employer] Gender Identity Not on file Sexual Orientation Not on file Obstetrics History Last Filed Vital Signs Vital Sign Reading Time Taken Comments Blood Pressure 138/88 02/21/2025 10:07 AM CDT Pulse 64 02/21/2025 10:07 AM CDT Temperature 36.2 C (97.2 F) 02/21/2025 10:07 AM CDT Respiratory Rate 18 02/21/2025 10:07 AM CDT Oxygen Saturation 99% 02/21/2025 10:07 AM CDT Inhaled Oxygen Concentration - - Weight 53.1 kg (117 lb) 02/21/2025 8:06 AM CDT Height 157.5 cm (5' 2) 02/21/2025 8:06 AM CDT Body Mass Index 21.4 02/21/2025 8:06 AM CDT Plan of Treatment Health Maintenance Due Date Last Done Comments Depression Screening 1960 Hepatitis C Screening 1960 Prostate Cancer Screening-PSA 1960 Hepatitis B Screening 1976 Pneumococcal vaccine 65+ (1 of 2 - PCV) 1977 Lung Cancer Screening 2008 Zoster Vaccine (1 of 2) 2008 Abdominal Aortic Aneurysm (A AA) Screen 2023 Well Visit 65+ 2023 Covid-19 Vaccine (4 - 2023-2 5 season) 2024 06/27/2021, 11/19/2020, 10/22/2020 Influenza Vaccine (#1) 2025 , 07/22/2022, 07/07/2022, Additional history exists Fall Risk Assessment 02/21/2026 02/21/2025 DTaP/Tdap/Td Vaccine (2 - Td or Tdap) 10/22/2026 10/22/2016 Colon Cancer Screening-Colonoscopy 02/21/2035 02/21/2025, 04/23/2016, 04/23/2016 Colon Cancer Screening-CT Colonography Discontinued 02/21/2025, 04/23/2016, 04/23/2016 Colon Cancer Screening-DNA Stool Discontinued 02/21/2025, 04/23/2016, 04/23/2016 Colon Cancer Screening-FIT Discontinued 02/21, 04/23/2016, 04/23/2016 Colon Cancer Screening-Sigmoidoscopy Discontinued 02/21/2025, 04/23/2016, 04/23/2016 Procedures Procedure Name Priority Date/Time Associated Diagnosis Comments SURGICAL PATHOLOGY STAT 02/21/2025 1:09 PM CDT History of colonic polyps Dysphagia, unspecified type ESOPHAGOGASTRODUODENOSCOPY BIOPSY 02/21/2025 9:03 AM CDT Personal history of colonic polyps Dysphagia, unspecified type BOUGIE DILATION 02/21/2025 9:03 AM CDT Personal history of colonic polyps Dysphagia, unspecified type COLON REMOVAL SNARE 02/21/2025 9:03 AM CDT Personal history of colonic polyps Dysphagia, unspecified type COLONOSCOPY 02/21/2025 7:57 AM CDT EGD 02/21/2025 7:57 AM CDT from Last 3 Months Results * Surgical pathology (02/21/2025 1:09 PM CDT) Tissue (Gastric/Stomach biopsy) 02/21/2025 9:07 AM CDT Tissue specimen (specimen) (EG Junction, Biopsy) 02/21/2025 9:08 AM CDT Tissue specimen (specimen) (Esophageal biopsy) 02/21/2025 9:10 AM CDT Tissue specimen (specimen) (Polyp(s), colon/colorectal, esophageal, gastric) 02/21/2025 9:28 AM CDT Narrative PATHOLOGY [facility] - 02/23/2025 12:48 PM CDT EPIC results best viewed via link to PDF [facility] Department of Pathology [address] [place] [address] Note to Patients: This report may contain a detailed description of human tissue sent by a health care provider to the laboratory for pathologic evaluation. The content of this report is essential for diagnosis and may provide important critical findings. This information may be unfamiliar to patients to review without a medical professional present. It is advised that the patient review this report in the presence of a health care provider who can answer questions and explain the details. Final Report Patient Name: ROBIN SPRAGUE Address: [address] [place] [address] Gender: M : 1960 (Age: 64) Service: Gastro Location: [facility] Hospital #: [id number] Patient Type: [facility] Taken: 02/21/2025 Received: 02/21/2025 Accessioned: 02/21/2025 Reported: 02/23/2025 Physician(s):Dr. Marcella Calabrese M.D. Diagnosis: A. Stomach, biopsy: - Antral and oxyntic type gastric mucosa showing mild chronic inactive gastritis. - Negative for intestinal metaplasia and dysplasia. - Negative for Helicobacter. B. Gastroesophageal junction, biopsy: - Squamocolumnar epithelium with mild chronic inflammation consistent with reflux related changes. - Negative for intestinal metaplasia and dysplasia. C. Esophagus, biopsy: - Fragments of benign squamous epithelium. D. Transverse colon polyp, biopsy: - Tubular adenoma. - Negative for high-grade dysplasia. Kendrick Talamantes M.D. Report Electronically Reviewed and Signed Out By Kendrick Talamantes M.D. 02/23/2025 12:48:26 Specimen(s) Received: A: Gastric biopsies B: GE Junction Biopsies C: Esophagus Biopsies D: Transverse colon polyp x 1 Microscopic Description: A. Sections show antral and oxyntic-type gastric mucosa showing mild chronic inactive gastritis. No significant acute inflammatory infiltrate is seen. There is no evidence of intestinal metaplasia or dysplasia. In order to classify the gastritis further, a Helicobacter immunohistochemical stain was performed with adequate controls and is negative. B. Sections show fragments of squamocolumnar epithelium with mild chronic inflammation compatible with reflux related changes. There is no evidence of intestinal metaplasia or dysplasia. C. Sections show fragments of benign squamous epithelium. No significant inflammatory infiltrate is seen. No fungal elements or viral cytopathic effect is seen. There is no evidence of dysplasia. No glandular mucosa is present. D. Sections show a tubular adenoma. There is no evidence of high-grade dysplasia or invasive carcinoma. Clinical History: Personal history of colonic polyps. Dysphagia. EGD. Colonoscopy. Gross Description: The specimen is submitted in four containers labeled ROBIN SPRAGUE. A. The first container is labeled gastric biopsies. It is 3 gamez tissue fragments between 2 and 6 mm. All in A. B. The second container is labeled GE junction. It is 3 gamez tissue fragments between <1 and 2 mm. All in B. C. The third container is labeled esophagus. It is 4 gamez tissue fragments measuring 1 mm. All in C. D. The fourth container is labeled transverse colon polyp. It is 3 gamez tissue fragments measuring 1 mm. All in D. T.A. Yasmin Butcher., P.A./Brittaney Marshall M.D. REPORT IMAGES AND SCANNED DOCUMENTS, IF INCLUDED, ONLY VIEWABLE IN PDF VERSION OF REPORT The performance characteristics of some immunohistochemical stains, fluorescence in-situ hybridization tests and immunophenotyping by flow cytometry cited in this report (if any) were determined by the Surgical Pathology Department at [facility] as part of an ongoing customer quality specialist program and in compliance with federally mandated regulations drawn from the Clinical Laboratory Improvement Act of 1988 (CLIA '88). Some of these tests rely on the use of analyte specific reagents and are subject to specific labeling requirements by the US Food and Drug Administration. Such diagnostic tests may only be performed in a facility that is certified by the Department of Health and Human Services as a high complexity laboratory under CLIA '88. The FDA has determined that such clearance or approval is not necessary. This test is used for clinical purposes. It should not be regarded as investigational or for research. Nevertheless, federal rules concerning the medical use of analyte specific reagents require that the following disclaimer be attached to the report: This test was developed and its performance characteristics determined by the Surgical Pathology Department [facility]. It has not been cleared or approved by the U. S. Food and Drug Administration. Note for decalcified specimens: This assay has not been validated on decalcified tissues. Results should be interpreted with caution given the possibility of false negativity on decalcified specimens Marcella Calabrese MD LAB PATHOLOGY ORDERABLES F inal Result PATHOLOGY [facility] [address] [id number] * Colonoscopy (02/21/2025 7:57 AM CDT) Anatomical Region Laterality Modality Other Narrative Procedure Note Marcella Calabrese MD - 02/21/2025 7:57 AM CDT [facility] Patient Name: Robin Sprague Procedure Date: 02/21/2025 7:57 AM Date of : 1960 Admit Type: Outpatient Age: 64 Gender: Male Attending MD: Marcella Calabrese M.D., Room: [facility] ENDOSCOPY ROOM 1 Note Status: Finalized Patient Profile: This is a 64 year old male. No family history ofcolon cancer. History of adenoma polyps in 2016 Procedure: Colonoscopy Indications: Screening for colorectal malignant neoplasm, Last colonoscopy: April 2016 Referring MD: Nara Craig M.D. Providers: Marcella Calabrese M.D. Impression: - One 12 mm polyp in the transverse colon, removed with a cold snare. Resected and retrieved. - Internal and external hemorrhoids. Recommendation: - Await pathology results. - Repeat colonoscopy in 3 years for surveillance. - Continue present medications. Medicines: Monitored Anesthesia Care Complications: No immediate complications. Estimated Blood Loss: Estimated blood loss: none. Procedure: Pre-Anesthesia Assessment: - Prior to the procedure, a History and Physicalwas performed, and patient medications and allergieswere reviewed. The patient's tolerance of previous anesthesia was also reviewed. The risks andbenefits of the procedure and the sedation options and risks were discussed with the patient. All questions were answered, and informed consent was obtained. Prior Anticoagulants: The patient has taken noanticoagulant or antiplatelet agents. ASA Grade Assessment: Per anesthesia note and evaluation. After reviewing the risks and benefits, the patient was deemed in satisfactory condition to undergo the procedure. - Prior to the procedure, a History and Physicalwas performed, and patient medications and allergieswere reviewed. The patient's tolerance of previous anesthesia was also reviewed. The risks andbenefits of the procedure and the sedation options and risks were discussed with the patient. All questions were answered, and informed consent was obtained. Prior Anticoagulants: The patient has taken noanticoagulant or antiplatelet agents. ASA Grade Assessment: Per anesthesia note and evaluation. After reviewing the risks and benefits, the patient was deemed in satisfactory condition to undergo the procedure. - Prior to the procedure, a History and Physicalwas performed, and patient medications and allergieswere reviewed. The patient's tolerance of previous anesthesia was also reviewed. The risks andbenefits of the procedure and the sedation options and risks were discussed with the patient. All questions were answered, and informed consent was obtained. Prior Anticoagulants: The patient has taken noanticoagulant or antiplatelet agents except for aspirin. ASAGrade Assessment: Per anesthesia note and evaluation.After reviewing the risks and benefits, the patient was deemed in satisfactory condition to undergo the procedure. The benefits, risks and alternatives of theprocedure and sedation were discussed and informed consentwas obtained. All questions were answered. Please referto the signed informed consent document in the medical record. The bowel preparation used was Miralax and bisacodyl tablets via split dose instruction. The scope was passed under direct vision. The Pediatric Colonoscope [id number]-H190L [id number] was introducedthrough the anus and advanced to the the cecum, identifiedby appendiceal orifice and ileocecal valve. Thequality of the bowel preparation was good. Bowel prep was administered using a split dose. Findings: The perianal and digital rectal examinations were normal. Smallexternal hemorrhoids noted The cecum appeared normal. The ascending colon was normal. A 12 mm polyp was found in the transverse colon. The polyp was semi-sessile. The polyp was removed with a cold snare. Resection and retrieval were complete. The rectum, sigmoid colon and descending colon appeared normal. Internal hemorrhoids were found during retroflexion. The hemorrhoids were medium-sized. Electronically signed by Marcella Calabrese M.D. Marcella Calabrese M.D. 02/21/2025 9:42:32 AM Number of Addenda: 0 Note Initiated On: 02/21/2025 7:57 AM Procedure Code(s): --- Professional --- 90635, Colonoscopy, flexible; with removal of tumor(s), polyp(s), or other lesion(s) by snare technique Diagnosis Code(s): --- Professional --- Z12.11, Encounter for screening for malignant neoplasm of colon K64.8, Other hemorrhoids D12.3, Benign neoplasm of transverse colon (hepatic flexure orsplenic flexure) CPT copyright 2022 [employer]. All rights reserved. The codes documented in this report are preliminary and upon maintenance shop technician reviewmay be revised to meet current compliance requirements. Recognized by the [employer] for promoting quality in endoscopy us Marcella Calabrese MD ENDOSCOPY PROCEDURES Final Result * EGD (02/21/2025 7:57 AM CDT) Anatomical Region Laterality Modality Other Narrative Procedure Note Marcella Calabrese MD - 02/21/2025 7:57 AM CDT [facility] Patient Name: Robin Sprague Procedure Date: 02/21/2025 7:57 AM Date of : 1960 Admit Type: Outpatient Age: 64 Gender: Male Attending MD: Marcella Calabrese M.D., Room: [facility] ENDOSCOPY ROOM 1 Note Status: Finalized Patient Profile: This is a 64 year old male. Patient complained of heartburn and occasional dysphagia. Procedure: Upper GI endoscopy Indications: Dysphagia, Heartburn Referring MD: Nara Craig M.D. Providers: Marcella Calabrese M.D. Impression: - Acute erosive gastritis. Biopsied. - Mild erosive reflux. Biopsied. - Normal esophagus body. Biopsied. Dilated with 52 [place] Martel dilator. Recommendation: - Use Protonix (pantoprazole) 40 mg PO daily for 1 year. - Follow an antireflux regimen. Medicines: Monitored Anesthesia Care Complications: No immediate complications. Estimated Blood Loss: Estimated blood loss: none. Procedure: Pre-Anesthesia Assessment: - Prior to the procedure, a History and Physicalwas performed, and patient medications and allergieswere reviewed. The patient's tolerance of previous anesthesia was also reviewed. The risks andbenefits of the procedure and the sedation options and risks were discussed with the patient. All questions were answered, and informed consent was obtained. Prior Anticoagulants: The patient has taken noanticoagulant or antiplatelet agents. ASA Grade Assessment: Per anesthesia note and evaluation. After reviewing the risks and benefits, the patient was deemed in satisfactory condition to undergo the procedure. The benefits, risks, and alternatives to theprocedure and sedation were discussed and informed consentwas obtained. The scope was passed under direct vision. The Endoscope GIF-H190 [id number] was introduced through the mouth, and advanced to the second partof duodenum. The upper GI endoscopy was accomplished without difficulty. The patient tolerated the procedure well. Findings: The examined duodenum was normal. Mucosa appeared normal. Scattered moderate inflammation characterized by adherent blood, erosions and erythema was found in the prepyloric region of thestomach. Biopsies were taken with a cold forceps for histology. The gastricbody and fundus were normal. Retroflexion stomach in the gastric cardiawas normal. LA Grade A (one or more mucosal breaks less than 5 mm, not extending between tops of 2 mucosal folds) esophagitis with no bleeding wasfound 40 cm from the incisors. Biopsies were taken with a cold forceps for histology. The examined esophagus body was normal. Biopsies were taken with acold forceps for histology. The scope was withdrawn. Dilation wasperformed with a Martel dilator with no resistance at 52 Fr. Electronically signed by Marcella Calabrese M.D. Marcella Calabrese M.D. 02/21/2025 9:39:28 AM Number of Addenda: 0 Note Initiated On: 02/21/2025 7:57 AM Procedure Code(s): --- Professional --- 83755, Esophagogastroduodenoscopy, flexible, transoral; with biopsy, single or multiple 66601, Dilation of esophagus, by unguided sound or bougie, single or multiple passes Diagnosis Code(s): --- Professional --- K29.00, Acute gastritis without bleeding K21.00, Gastro-esophageal reflux disease with esophagitis, without bleeding R13.10, Dysphagia, unspecified R12, Heartburn CPT copyright 2022 [employer]. All rights reserved. The codes documented in this report are preliminary and upon maintenance shop technician reviewmay be revised to meet current compliance requirements. Recognized by the [employer] for promoting quality in endoscopy Marcella Calabrese MD ENDOSCOPY PROCEDURES Final Result from Last 3 Months Insurance [facility] MED[facility] ADV[facility]AGE [facility] [facility] MEDIC[facility] ADVANTAGE [address] [place] [address] Advance Directives For more information, please contact: [phone] * Full Code (Latest Code Status on File) Date Activated Date Inactivated Comments 02/21/2025 7:57 AM 02/21/2025 2:17 PM * Full Code Date Activated Date Inactivated Comments 02/21/2025 7:57 AM 02/21/2025 7:57 AM Care Teams Manager Urgent Care Relationship Specialty Start Date End Date Nara Craig MD [address] [place] [address] PCP - General Emergency Medicine 03/31/24
--- NOTE | 2025-03-29 15:49 | WPDPFTINT ---
PFT Procedure Performed PFT Procedure Performed Plethysmography (Lung Vol) Diffusing Cap (DLCO) Flow Vol Loop Spirometry w/o Bronchodil PFT Interpretation This is a pulmonary function test with spirometry, plethysmography and diffusing capacity. The test was performed and results interpreted in accordance with the 2019 and 2005 ATS/ERS Task Force guidelines respectively using the Global Lung Function Initiative-2012 reference equations. Patient demonstrated good effort and cooperation. Reproducibility criteria were met. The quality of the spirometry maneuver was Grade A. Findings: Spirometry: There is decreased maximal expiratory airflow at all lung volumes with concave expiratory flow tracing. The contour the inspiratory flow tracing is normal. The FVC is 3.89 L, 119% predicted. The FEV1 is 1.72 L, 68% predicted. The FEV1: FVC ratio is 44%. Plethysmography: The total lung capacity 7.23 L, 135% predicted. The functional residual capacity is 4.85 L, 179% predicted. The residual volume is 3.34 L, 174% predicted. The residual volume: Total lung capacity ratio is 46%. Diffusing capacity: The diffusing capacity unadjusted for hemoglobin and carboxyhemoglobin is 12.4, 52% predicted. The diffusing capacity adjusted for alveolar volume is 1.62, 36% predicted. In comparison to previous pulmonary function testing on 05/04/2024, the pre bronchodilator FVC is unchanged from 4.44 L to 3.89 L. The pre bronchodilator FEV1 is unchanged from 1.93 L to 1.72 L. The total lung capacity is unchanged from 7.68 L to 7.23 L. The functional residual capacity is unchanged from 4.89 L to 4.85 L. The residual volume is unchanged from 3.24 L to 3.34 L. The diffusing capacity unadjusted for hemoglobin and carboxyhemoglobin is unchanged from 11.3 to 12.4. The diffusing capacity adjusted for alveolar volume is unchanged from 1.82 to 1.62. Impression: There is a moderate obstructive abnormality. The increase in residual volume to total lung volume ratio is consistent with hyperinflation from an obstructive abnormality. The diffusing capacity unadjusted for hemoglobin and carboxyhemoglobin is moderately decreased and is severely decreased when adjusted for alveolar volume. In comparison to previous pulmonary function testing on 05/04/2024 there has been no significant change in the FVC, FEV1, total lung capacity, functional residual capacity, residual volume or diffusing capacity. Clinical correlation is recommended.
== END 2025-03-29 14:33 | disposition home or self-care (01) ==
PROVIDERS: PCP Emergency Medicine; Visit Provider Emergency Medicine
DX: R06.00 Dyspnea, unspecified (principal); R94.2 Abnormal results of pulmonary function studies
CPT/HCPCS: 94375; 94726; 94729